=== PATIENT | male | born 1955 | race Caucasian/White ===

== ENCOUNTER → 2022-11-26 09:21 | Outpatient (BNVA) | payer MEDICARE, SELFPAY | PROVIDERS: PCP Specialist; Visit Provider Nurse Practitioner | DX: I25.10 Atherosclerotic heart disease of native coronary artery without angina pectoris (principal); I25.2 Old myocardial infarction; Z95.1 Presence of aortocoronary bypass graft; Z79.899 Other long term (current) drug therapy; K21.9 Gastro-esophageal reflux disease without esophagitis | CPT/HCPCS: 80053; 80061; 84443; 85025 ==

== ENCOUNTER → 2022-12-26 15:09 | Outpatient (BNVA) | payer MEDICARE, SELFPAY | PROVIDERS: PCP Nurse Practitioner; Referring Provider Nurse Practitioner; Visit Provider Internal Medicine Cardiovascular Disease | DX: R07.9 Chest pain, unspecified (principal); I25.10 Atherosclerotic heart disease of native coronary artery without angina pectoris; I10 Essential (primary) hypertension; E78.5 Hyperlipidemia, unspecified; I25.5 Ischemic cardiomyopathy; Z87.891 Personal history of nicotine dependence | CPT/HCPCS: 93005; 99204 ==

== ENCOUNTER 2022-12-30 14:43 | Outpatient (CLI) | payer MEDICARE, SELFPAY ==
--- NOTE | 2022-12-30 15:15 | USCV_ITS ---
Lakeisha Shrestha Age: 67 Gender: M : 1955 Exam Date: 12/30/2022 15:20 Ordering Phys: Varinder Buitrago MD ([email or web address]) Technologist: JEANNA Exam Location: [facility] Indication: CARDIOMYO BP: 140 / 80 HR: 59 Rhythm: Sinus Technical Quality: Adequate MEASUREMENTS (Male / Female) Normal Values 2D ECHO LVOT Diameter 2.0 cm LV Ejection Fraction MOD 2C 27.7 % LV Ejection Fraction 2C AL 26.8 % LA Diameter 3.7 cm LA Width 2.6 cm LA Height 5.0 cm RA Width 3.5 cm RA Height 4.2 cm Aorta at Sinotubular Diameter 2.2 cm IVC Diameter 1.3 cm M-MODE Aortic Annulus Diameter 3.4 cm LA Ao Ratio MM 1.1 MV E Point Septal Separation 1.1 cm DOPPLER AV Peak Velocity 121.0 cm/s LVOT Peak Velocity 76.0 cm/s AV Area Cont Eq vti 2.2 cm squared AV Area Cont Eq pk 2.0 cm squared MV Peak Velocity 87.0 cm/s MV Area PHT 3.1 cm squared Mitral E to A Ratio 0.8 MV E' Velocity 36.5 cm/s Mitral E to MV E' Ratio 7.5 Mitral E to LV E' Lateral Ratio 5.5 Mitral E to LV E' Septal Ratio 11.9 TR Peak Velocity 171.5 cm/s TR Peak Gradient 11.8 mmHg TR Mean Velocity 138.3 cm/s TR Mean Gradient 7.9 mmHg TR Velocity Time Integral 48.4 cm TV Peak E Velocity 53.0 cm/s Right Atrial Pressure 3.0 mmHg Pulmonary Artery Systolic Pressu 14.8 mmHg PV Peak Velocity 100.0 cm/s RV Acceleration Time 0.1 s RV Ejection Time 0.3 s RV AcT/ET 0.5 FINDINGS Left Ventricle Mildly dilated LV cavity. Diffuse hypokinesia of left ventricule with an ejection fraction of 32%.Grade I/IV diastolic dysfunction (abnormal relaxation filling pattern), normal to mildly elevated filling pressures. Right Ventricle The right ventricle is normal in size and function. Right Atrium The right atrium is normal in size. Left Atrium Mildly increased left atrial size. Mitral Valve Mild-moderate mitral valve regurgitation. Aortic Valve Thickened aortic valve. Trace aortic valve regurgitation. Tricuspid Valve Trace tricuspid valve regurgitation. Estimated pulmonary artery peak systolic pressure 15 mmHg Pulmonic Valve Mild pulmonary valve regurgitation. Pericardium Normal pericardium without effusion. Aorta Normal ascending aorta dimension. IVC Normal inferior vena cava. CONCLUSIONS Mildly dilated LV cavity. Diffuse hypokinesia of left ventricule with an ejection fraction of 32%. Grade I/IV diastolic dysfunction (abnormal relaxation filling pattern), normal to mildly elevated filling pressures. Mildly increased left atrial size. Mild-moderate mitral valve regurgitation. Thickened aortic valve. Trace aortic valve regurgitation. Trace tricuspid valve regurgitation. Estimated pulmonary artery peak systolic pressure 15 mmHg. There is no pericardial effusion. There are no intracardiac masses. No similar previous studies are available for comparison Dr Varinder Buitrago MD [facility] (Electronically Signed) Final Date: 03 January 2023 09:55 S
== END 2022-12-30 14:44 | disposition home or self-care (01) ==
LOC: RAD 14:43
PROVIDERS: PCP Nurse Practitioner; Visit Provider Internal Medicine Cardiovascular Disease
DX: I42.9 Cardiomyopathy, unspecified (principal); R06.09 Other forms of dyspnea; I08.0 Rheumatic disorders of both mitral and aortic valves
CPT/HCPCS: 93306

== ENCOUNTER → 2023-01-14 09:31 | Outpatient (BNVA) | payer MEDICARE, SELFPAY | PROVIDERS: PCP Nurse Practitioner; Visit Provider Nurse Practitioner Family | DX: I25.5 Ischemic cardiomyopathy (principal); I10 Essential (primary) hypertension; Z87.891 Personal history of nicotine dependence | CPT/HCPCS: 99214 ==

== ENCOUNTER → 2023-01-27 09:31 | Outpatient (BNVA) | payer MEDICARE, SELFPAY | PROVIDERS: PCP Nurse Practitioner; Referring Provider Nurse Practitioner Family; Visit Provider Nurse Practitioner Family | DX: I25.5 Ischemic cardiomyopathy (principal); I10 Essential (primary) hypertension; I25.10 Atherosclerotic heart disease of native coronary artery without angina pectoris | CPT/HCPCS: 80048; 83880 ==

== ENCOUNTER → 2023-02-25 09:04 | Outpatient (BNVA) | payer MEDICARE, SELFPAY | PROVIDERS: PCP Nurse Practitioner; Visit Provider Nurse Practitioner Family | DX: I25.5 Ischemic cardiomyopathy (principal); Z79.899 Other long term (current) drug therapy | CPT/HCPCS: 80048 ==

== ENCOUNTER → 2023-03-31 14:49 | Outpatient (BNVA) | payer MEDICARE, SELFPAY | PROVIDERS: PCP Nurse Practitioner; Visit Provider Internal Medicine Cardiovascular Disease | DX: I25.10 Atherosclerotic heart disease of native coronary artery without angina pectoris (principal); I10 Essential (primary) hypertension; E78.5 Hyperlipidemia, unspecified; I25.5 Ischemic cardiomyopathy; Z87.891 Personal history of nicotine dependence | CPT/HCPCS: 99214 ==

== ENCOUNTER 2023-04-22 10:17 | Outpatient (CLI) | payer MEDICARE, SELFPAY ==
--- NOTE | 2023-04-22 11:00 | USCV_ITS ---
Lakeisha Shrestha Age: 68 Gender: M : 1955 Exam Date: 04/22/2023 10:28 Ordering Phys: Varinder Buitrago MD ([email or web address]) Technologist: CT Exam Location: [facility] Indication: BP: 120 / 80 HR: Rhythm: Sinus Technical Quality: Adequate MEASUREMENTS (Male / Female) Normal Values 2D ECHO LVOT Diameter 2.2 cm LV Ejection Fraction MOD 2C 46.1 % LV Ejection Fraction 2C AL 49.5 % LA Diameter 3.4 cm RA Systolic Volume 4C AL 36.0 ml RA Systolic Volume 4C MOD 33.0 ml Aorta at Sinotubular Diameter 2.9 cm IVC Diameter 1.5 cm M-MODE LA Ao Ratio MM 1.2 AV Cusp Separation MM 2.2 cm FINDINGS Left Ventricle Diffuse hypokinesia of the left ventricle with ejection fraction of 46%. Mildly dilated left Left-ventricular cavity Right Ventricle The right ventricle is normal in size and function. Right Atrium The right atrium is normal in size. Left Atrium Mildly increased left atrial size. Mitral Valve No gross abnormalities noted Aortic Valve Thickened aortic valve. Tricuspid Valve No gross abnormalities noted Pulmonic Valve No gross abnormalities noted Pericardium Normal pericardium without effusion. Aorta Normal ascending aorta dimension. IVC Normal inferior vena cava. CONCLUSIONS Diffuse hypokinesia of the left ventricle with ejection fraction of 46%. Mildly increased left atrial size. Mildly dilated left Left-ventricular cavity. There is no pericardial effusion. There are no intracardiac masses. Compared to the study from 12/30/2022, there is significant improvement of the LV ejection fraction from 32% to 46% Dr Varinder Buitrago MD FAC (Electronically Signed) Final Date: 25 April 2023 19:46 S
== END 2023-04-22 10:18 | disposition home or self-care (01) ==
LOC: RAD 10:17
PROVIDERS: PCP Nurse Practitioner; Visit Provider Internal Medicine Cardiovascular Disease
DX: I42.9 Cardiomyopathy, unspecified (principal); I51.7 Cardiomegaly
CPT/HCPCS: 93308

== ENCOUNTER → 2023-05-20 09:47 | Outpatient (BNVA) | payer MEDICARE, SELFPAY | PROVIDERS: PCP Nurse Practitioner; Visit Provider Otolaryngology | DX: R04.0 Epistaxis (principal); I10 Essential (primary) hypertension | CPT/HCPCS: 30901; 30905; 99204; 99205 ==

== ENCOUNTER → 2023-05-27 09:28 | Outpatient (BNVA) | payer MEDICARE, SELFPAY | PROVIDERS: PCP Nurse Practitioner; Visit Provider Otolaryngology | DX: R04.0 Epistaxis (principal) | CPT/HCPCS: 99213 ==

== ENCOUNTER → 2023-09-11 10:30 | Outpatient (BNVA) | payer MEDICARE, SELFPAY | PROVIDERS: PCP Nurse Practitioner; Visit Provider Nurse Practitioner Family | DX: I25.10 Atherosclerotic heart disease of native coronary artery without angina pectoris (principal); I25.2 Old myocardial infarction; I10 Essential (primary) hypertension; E78.5 Hyperlipidemia, unspecified; Z87.891 Personal history of nicotine dependence | CPT/HCPCS: 36415; 80061; 99214 ==

== ENCOUNTER → 2024-02-23 10:13 | Outpatient (BNVA) | payer MEDICARE, SELFPAY | PROVIDERS: PCP Nurse Practitioner; Visit Provider Nurse Practitioner | DX: I25.2 Old myocardial infarction (principal); I10 Essential (primary) hypertension | CPT/HCPCS: 80053; 80061; 85025 ==

== ENCOUNTER 2024-04-22 10:52 | Inpatient (IN) | payer MEDICARE, SELFPAY ==
[2024-04-22] VITALS (14 sets, daily range): BP systolic 112–130; BP diastolic 67–84; PULSE 79–98; RESP 16–24; TEMP 36.3–36.8; O2SAT 93–98; BMI 27.2; BMI 26.4
--- NOTE | 2024-04-22 10:58 | ECG_ITS ---
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 Measurements Intervals [place] Rate: 89 P: 26 ID: 150 QRS: 78 QRSD: 124 T: 32 QT: 340 QTc: 415 Interpretive Statements SINUS RHYTHM MODERATE INTRAVENTRICULAR CONDUCTION DELAY [110+ ms QRS DURATION] NONSPECIFIC ST & T-WAVE ABNORMALITY Compared to ECG 12/26/2022 15:15:21 Intraventricular conduction delay now present T-wave abnormality now present Left ventricular hypertrophy no longer present ST (T wave) deviation no longer present Electronically Signed On 04-23-2024 19:07:00 CDT by Ha Cortez M.D. [id number]
--- NOTE | 2024-04-22 10:58 | XR_ITS ---
WS: [id number] Portable AP upright chest, 04/22/2024 Clinical Data: Chest pain Comparison: Two-view chest, 07/01/2026 Findings: No nodules, masses or effusions are seen. The heart is normal. The pulmonary vascularity is not increased. No pneumonia or pneumothorax is seen. The diaphragms are flattened. There are midline sternotomy sutures. There are mediastinal clips overlying the heart. XR/XR chest 1V portable [id number] Impression: Hyperinflation and atherosclerosis.
[2024-04-22 11:37] LABS: Basophils # 0.1 10^3/uL (0.0-0.1); Eosinophils # 0.3 10^3/uL (0.0-0.8); Eosinophils % 3.6 %; Hematocrit 40.6 % (37-53); Lymphocytes # 1.6 10^3/uL (0.8-4.8); Lymphocytes % 17.5 %; Mean Corpuscular HGB Conc 31.8 g/dL (30-55); Mean Corpuscular Hemoglobin 29.6 pg (27-33); Mean Corpuscular Volume 93.1 fl (82-101); Mean Platelet Volume 10.6 fL (7.4-10.4); Monocytes # 1.2 10^3/uL (0.2-0.9); Monocytes % 13.7 %; Neutrophils # 5.72 10^3/uL (1.8-7.7); Neutrophils % 63.9 %; Nucleated Red Blood Cells % 0 %; Platelet Count 247 10^3/cmm (157-399); Red Blood Count 4.36 10^6/uL (3.85-5.65); Red Cell Distribution Width 14.4 % (12.1-15.1); White Blood Count 8.96 10^3/uL (3.29-11.43)
--- NOTE | 2024-04-22 11:37 | W.ED.EXTPRO ---
HPI - Extremity Problem General: Chief complaint: Extremity Problem,Nontraumatic Stated complaint: cp, left shoulder pain Time Seen by Provider: 04/22/24 10:59 History of Present Illness: Patient presents to the ER by EMS from one of the outlying clinics. Patient stated he started having chest pain started last week and has gotten worse over time. Patient also states he has a tingling and pain in his left shoulder that radiates down his arm. He denies chest pain at this time. He did state that the pain in his arm feels like the last time he had a heart attack which was approximately 2022 when he ended up with a four-vessel bypass, this was in [place]. Patient does have a history of CAD with CABG, CHF, patient is on aspirin 81 mg, Lipitor 40, Plavix 75, Toprol 25, Entresto 1 tab twice daily Patient also states he fell on his left shoulder approximately 4 5 years ago and hurt it and he may have more arthritis in it even know he did not have any recent injury to it. Related Data Home Medications ?Medication ?Instructions ?Recorded ?Confirmed aspirin 81 mg tablet,delayed 81 mg PO DAILY 11/26/22 04/22/24 release pediatric multivitamin no.17 1 tab PO DAILY 11/26/22 04/22/24 (Children's Chew Multivitamin tablet) clopidogrel 75 mg tablet 75 mg PO DAILY 04/22/24 04/22/24 metoprolol succinate 25 mg 25 mg PO DAILY 04/22/24 04/22/24 tablet,extended release 24 hr Previous Rx's ?Medication ?Instructions ?Recorded pantoprazole 40 mg tablet,delayed 40 mg PO DAILY #90 tabs 08/18/23 release (Protonix) atorvastatin 40 mg tablet (Lipitor) 40 mg PO DAILY #90 tabs 09/11/23 fexofenadine 60 mg tablet (Allergy 60 mg PO BID #60 tabs 10/21/23 Relief (fexofenadine)) sacubitril 97 mg-valsartan 103 mg 1 tab PO BID #180 tabs 03/09/24 tablet Allergies Allergy/AdvReac Type Severity Reaction Status Date / Time No Known Allergies Allergy Verified 04/22/24 09:31 Review of Systems General: Reports: 10 or more systems reviewed and unremarkable except in HPI and below PFSH ED PFSH: Medical History History of heart attack 2022 Surgical History History of cholecystectomy History of hernia repair History of dental surgery History of quadruple bypass 05/20/2022 Family History Grandfather , maternal Cancer paternal- liver Chronic kidney disease (CKD) Diabetes Brother Heart disease Mother Heart disease Denies family history of Clotting disorder Bleeding disorder Thyroid disease Stroke Social History Smoking and tobacco/nicotine status: former use of tobacco/nicotine Quit status (tobacco/nicotine): has quit using Year quit tobacco: 2017 Second hand smoke exposure: No Physical Exam Const: COMMON NORMALS: no acute distress, average body habitus, patient oriented x3, no limitations, alert and well nourished HENMT: COMMON NORMALS: normocephalic, atraumatic, hearing grossly normal bilaterally, external ears normal, Normal external nose present, moist oral mucous membranes and oropharynx normal HEAD & SCALP: normocephalic and atraumatic NOSE: Normal external nose present EXTERNAL EAR: Yes external ears normal Neck/C-Spine: COMMON NORMALS: no JVD Chest: COMMONS NORMALS: normal inspection of the chest and normal palpation of entire chest wall Resp: COMMON NORMALS: normal respiratory effort, No retractions, No use of accessory muscles and clear to auscultation bilaterally AUSCULTATION: clear to auscultation bilaterally Cardio: COMMON NORMALS: no JVD, regular rate, regular rhythm, S1 normal heart sound present, S2 normal heart sound present, No gallops present (Cardio), No clicks present (Cardio), No murmurs present (Cardio) and No rub (Cardio) RATE: regular rate RHYTHM: regular rhythm HEART SOUNDS: S1 normal heart sound present and S2 normal heart sound present GI: COMMON NORMALS: Normal to inspection, nondistended, normoactive bowel sounds present, Soft to palpation, non-tender, No hepatosplenomegaly present and no masses PALPATION: Yes Soft to palpation and Yes No hepatosplenomegaly present Neuro: COMMON NORMALS: patient oriented x3 SENSORIUM/ORIENTATION: Yes alert Course Vital Signs: Vital signs: Vital Signs Temperature 97.4 F L 04/22/24 10:53 Pulse Rate 84 04/22/24 11:36 Respiratory Rate 18 04/22/24 11:36 Blood Pressure 118/77 04/22/24 11:36 Pulse Oximetry 96 04/22/24 11:36 Oxygen Delivery Me thod Room Air 04/22/24 10:53 MDM - Extremity (Nontraumatic) Medical Decision Making EKG was obtained which showed some ST depression, when lab work came back troponin was 362, baseline we do not have any previous troponin, BUN/creatinine was 18 and 1.2, we immediately got a second EKG which was unchanged, these EKGs were faxed to Dr. Bailey who said no STEMI. The hospitalist was consulted Dr. Walker who agreed to place patient observation for further evaluation treatment. Patient was given 324 mg aspirin p.o. chewable, Plavix 600 mg p.o., and Lovenox 90 mg subcu. Medical Records I reviewed the patient's medical records. Lab Data I reviewed the patient's lab results. 04/22/24 11:28 04/22/24 11:28 Radiology Impressions Chest X-Ray 04/22/24 10:58 Impression: Hyperinflation and atherosclerosis. Laboratory Results WBC 8.96 10^3/uL (3.29-11.43) 04/22/24 11:28 RBC 4.36 10^6/uL (3.85-5.65) 04/22/24 11:28 Hgb 12.90 g/dL (11.27-16.99) 04/22/24 11:28 Hct 40.6 % (37-53) 04/22/24 11:28 MCV 93.1 fl (82-101) 04/22/24 11:28 MCH 29.6 pg (27-33) 04/22/24 11:28 MCHC 31.8 g/dL (30-55) 04/22/24 11:28 RDW 14.4 % (12.1-15.1) 04/22/24 11:28 Plt Count 247 10^3/cmm (157-399) 04/22/24 11:28 MPV 10.6 fL (7.4-10.4) H 04/22/24 11:28 Neut % (Auto) 63.9 % 04/22/24 11:28 Lymph % (Auto) 17.5 % 04/22/24 11:28 Woodruff % (Auto) 13.7 % 04/22/24 11:28 Eos % (Auto) 3.6 % 04/22/24 11:28 Baso % (Auto) 1.0 % 04/22/24 11:28 Neut # (Auto) 5.72 10^3/uL (1.8-7.7) 04/22/24 11:28 Lymph # (Auto) 1.6 10^3/uL (0.8-4.8) 04/22/24 11:28 Woodruff # (Auto) 1.2 10^3/uL (0.2-0.9) H 04/22/24 11:28 Eos # (Auto) 0.3 10^3/uL (0.0-0.8) 04/22/24 11: Baso # (Auto) 0.1 10^3/uL (0.0-0.1) 04/22/24 11:28 Nucleated RBC % (auto) 0 % 04/22/24 11:28 Nucleated RBCs # 0.0 /100WBC 04/22/24 11:28 Sodium 137 mmol/L (136-145) 04/22/24 11:28 Potassium 4.4 mmol/L (3.5-5.1) 04/22/24 11:28 Chloride 104 mmol/L (98-107) 04/22/24 11:28 Carbon Dioxide 23 mmol/L (22-29) 04/22/24 11:28 Anion Gap 14.4 (5-19) 04/22/24 11:28 BUN 18 mg/dL (8-23) 04/22/24 11:28 Creatinine 1.2 mg/dL (0.7-1.2) 04/22/24 11:28 GFR Calculation 60.4 mL/min (90-130) L 04/22/24 11:28 Glucose 118 mg/dL (65-115) H 04/22/24 11:28 Calculated Osmolality 287 mOsm/kg (285-295) 04/22/24 11:28 Calcium 9.3 mg/dL (8.5-10.5) 04/22/24 11:28 Total Bilirubin 0.5 mg/dL (0.15-1.2) 04/22/24 11:28 AST 40 U/L (0-40) 04/22/24 11:28 ALT 26 U/L (0-41) 04/22/24 11:28 Alkaline Phosphatase 114 U/L (40-130) 04/22/24 11:28 Troponin T Baseline 362 ng/L (0-15) H* 04/22/24 11:28 Total Protein 6.8 g/dL (6.6-8.7) 04/22/24 11:28 Albumin 3.8 g/dL (3.5-5.2) 04/22/24 11:28 Globulin 3.0 g/dL (1.3-4.6) 04/22/24 11:28 All radiology interpretation(s) finalized by discharge Discharge Plan Discharge Patient Disposition: Placed in Observation Clinical Impression: Acute non-ST elevation myocardial infarction (NSTEMI), History of coronary artery bypass graft Coding Level of Care Code ED 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
[2024-04-22 11:57] LABS: Alanine Aminotransferase 26 U/L (0-41); Albumin Level 3.8 g/dL (3.5-5.2); Alkaline Phosphatase 114 U/L (40-130); Anion Gap 14.4 (5-19); Aspartate Amino Transferase 40 U/L (0-40); Blood Urea Nitrogen 18 mg/dL (8-23); Calcium 9.3 mg/dL (8.5-10.5); Carbon Dioxide 23 mmol/L (22-29); Chloride 104 mmol/L (98-107); Glomerular Filtration Rate 60.4 mL/min (90-130); Glucose 118 mg/dL (65-115); Osmolality Calculated 287 mOsm/kg (285-295); Potassium 4.4 mmol/L (3.5-5.1); Sodium 137 mmol/L (136-145); Total Bilirubin 0.5 mg/dL (0.15-1.2); Total Protein 6.8 g/dL (6.6-8.7)
[2024-04-22 12:08] LABS: Troponin(5th) Baseline 362 ng/L (0-15)
--- NOTE | 2024-04-22 12:12 | ECG_ITS ---
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 Measurements Intervals [place] Rate: 81 P: 59 WA: 144 QRS: 38 QRSD: 124 T: -17 QT: 364 QTc: 425 Interpretive Statements SINUS RHYTHM MODERATE INTRAVENTRICULAR CONDUCTION DELAY [110+ ms QRS DURATION] MODERATE ST DEPRESSION [0.05+ mV ST DEPRESSION] Compared to ECG 04/22/2024 10:54:51 ST (T wave) deviation now present T-wave abnormality no longer present Electronically Signed On 04-23-2024 19:23:51 CDT by Ha Cortez M.D. [id number]
[2024-04-22] MEDS: clopidogrel 300 mg Tablet 600 MG PO (12:35)
[2024-04-22] MEDS: aspirin 81 mg Chew Tablet 324 MG PO (12:35)
[2024-04-22] MEDS: enoxaparin 100 mg/mL Syringe 90 MG SUBCUT (12:35)
--- NOTE | 2024-04-22 13:39 | P.HP_ITS ---
Providers/Chief Complaint 2 Primary Care Provider: Edie Henley APN Chief Complaint: cp, left shoulder pain History of Present Illness 69-year-old male with a past medical history of GERD, hypertension, dyslipidemia, coronary artery disease status post quadruple coronary artery bypass graft (CABG) in 05/2022, congestive heart failure with ejection fraction of 46% who presents with intermittent left arm numbness and tingling for the past 2-3 days. The numbness and tingling sensation is described as similar to the feeling of sleeping on one's arm, lasting 3-4 minutes per episode and occurring 7-8 times today. Associated symptoms include heartburn described as a burning sensation and nausea without vomiting. Denies chest pain or shortness of breath. Reports compliance with medications. Additional history includes left shoulder pain following a fall 3-4 years ago and another fall 4-5 years ago, with persistent shoulder pain since the first cardiac surgery. Also notes chronic neck pain attributed to arthritis. Denies any prior cervical spine issues. Initial evaluation in the ER revealed: - Laboratory Findings: Elevated troponin at 362. Remainder of labs within normal limits. - Imaging Studies: Chest X-ray showing hyperinflation. The patient was treated with aspirin, loaded with Plavix, and started on lovenox. He remains hemodynamically stable and asymptomatic. Review of Systems 2 General: Reports: 10 or more systems reviewed and unremarkable except in HPI and below Medications/Allergies Home Medications ?Medication ?Instructions ?Recorded ?Confirmed ?Last Taken ?Type aspirin 81 mg tablet,delayed 81 mg PO DAILY 11/26/22 0 04/22/24 04/22/24 History release pediatric multivitamin no.17 1 tab PO DAILY 11/26/22 0 04/22/24 04/22/24 History (Children's Chew Multivitamin tablet) pantoprazole 40 mg tablet,delayed 40 mg PO DAILY #90 t abs 08/18/23 04/22/24 04/22/24 Rx release (Protonix) atorvastatin 40 mg tablet (Lipitor) 40 mg PO DAILY #90 tabs 09/11/23 04/22/24 04/22/24 Rx fexofenadine 60 mg tablet (Allergy 60 mg PO BID #60 ta bs 10/21/23 04/22/24 04/22/24 Rx Relief (fexofenadine)) sacubitril 97 mg-valsartan 103 mg 1 tab PO BID #180 ta bs 03/09/24 04/22/24 04/22/24 Rx tablet clopidogrel 75 mg tablet 75 mg PO DAILY 04/22/2404/1004/22/24 History metoprolol succinate 25 mg 25 mg PO DAILY 04/22/2404/22/24 History tablet,extended release 24 hr Allergies Allergy/AdvReac Type Severity Reaction Status Date / Time No Known Allergies Allergy Verified 04/22/24 09:31 PFSH Acute 2 PFSH: Medical History History of heart attack may- 2022 Surgical History History of cholecystectomy History of hernia repair History of dental surgery History of quadruple bypass 05/20/2022 Family History Grandfather , maternal Cancer paternal- liver Chronic kidney disease (CKD) Diabetes Brother Heart disease Mother Heart disease Denies family history of Clotting disorder Bleeding disorder Thyroid disease Stroke Social History Smoking and tobacco/nicotine status: former use of tobacco/nicotine Quit status (tobacco/nicotine): has quit using Year quit tobacco: 2016 Second hand smoke exposure: No Vitals/I&O/Wt Last Vital Signs Temp 97.4 F L 04/22/24 10:53 Pulse 93 04/22/24 13:37 Resp 16 04/22/24 13:37 BP 130/79 04/22/24 13:37 Pulse Ox 98 04/22/24 13:37 O2 Del Method Room Air 04/22/24 10:53 Weight last 48 hrs Weight 86.183 kg Physical Exam 2 Narrative: - Cardiovascular: RRR - Respiratory: Lungs clear to auscultati on bilaterally. No respiratory distress. - Gastrointestinal: Noted heartburn, maynor cribed as burning sensation. No abdominal pain or tenderness. Nondistended - Musculoskeletal: Intermittent left arm numbness and tingling. Chronic left shoulder pain. - Neurological: No focal neurological de ficits. Data 04/22/24 11:28 04/22/24 11:28 A&P Assessment and plan (1) Acute non-ST elevation myocardial infarction (NSTEMI): (2) Benign essential HTN: (3) History of quadruple bypass: (4) History of heart attack: (5) Dyslipidemia: (6) History of coronary artery bypass graft: Plan NSTEMI - 69-year-old male with extensive cardiac history presenting with intermittent left arm numbness and tingling concerning for unstable angina in the setting of elevated troponin. No evidence of acute ST-elevation myocardial infarction on EKG. Differential Diagnosis: 1. Unstable angina secondary to progression of absentee-[place]nee coronary artery disease or bypass graft disease. 2. Less likely alternative etiologies include cervical radiculopathy or peripheral neuropathy. Plan: 1. Admit to cardiac step-down unit for close monitoring and serial troponins. 2. Continue aspirin, Plavix, statin and Lovenox 3. Cardiology consultation for consideration of left heart catheterization 5. Cardiac diet now however NPO at Midnight for possible cath in am Chronic HF with mildly reduced EF - History of congestive heart failure with last known ejection fraction of 46% in 2023. No overt signs or symptoms of acute decompensation on presentation. Plan: 1. Continue home Entresto 97/103 mg twice daily following cardiac cath and metoprolol succinate 25 mg daily 2. Monitor fluid balance and weight daily. 3. Defer echo to cardiology Gastroesophageal Reflux Disease - Reports symptoms of heartburn without chest pain, currently managed with proton pump inhibitor therapy. Plan: 1. Continue proton pump inhibitor. Chronic Left Shoulder Pain - History of left shoulder pain following falls 3-4 and 4-5 years ago, with persistent pain since first cardiac surgery. No evidence of acute fracture or dislocation. Plan: 1. Obtain X-ray of left shoulder to evaluate for any acute osseous abnormality. 2. Consider OT evaluation for range of motion exercises and strengthening. PDMP PDMP Reviewed: Not Reviewed Attestations 2 Medical Necessity Statement*: Anticiapate less than 2 midnight stay Coding Level of Care Code Acute Code for [facility] Diagnoses Acute non-ST elevation myocardial infarction (NSTEMI) I21.4 Benign essential HTN I10 History of quadruple bypass Z95.1 History of heart attack I25.2 Dyslipidemia E78.5 History of coronary artery bypass graft Z95.1
--- NOTE | 2024-04-22 14:10 | XR_ITS ---
WS: [email or web address] Left shoulder, 3 views, 04/22/2024 Clinical Data: shoulder pain Comparison: None. Findings: No fractures or dislocations are seen. The AC joint is normal. The adjacent left clavicle, left scapula and ribs are normal. The soft tissues are unremarkable. Midline sternotomy sutures are present. There is a monitor lead on the chest wall. XR/XR shoulder LT min 2V* [id number] Impression: Negative left shoulder.
[2024-04-22 14:47] LABS: Troponin 5 2HR 373.4 ng/L (0-15); Troponin 5 2HR Delta 11.4 ABS# (0-10)
--- NOTE | 2024-04-22 16:58 | ECG_ITS ---
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 Measurements Intervals [place] Rate: 81 P: 50 [place]: 150 QRS: -16 QRSD: 128 T: -4 QT: 373 QTc: 434 Interpretive Statements SINUS RHYTHM MODERATE INTRAVENTRICULAR CONDUCTION DELAY [110+ ms QRS DURATION] NONSPECIFIC ST & T-WAVE ABNORMALITY Compared to ECG 04/22/2024 12:12:08 T-wave abnormality now present ST (T wave) deviation no longer present Electronically Signed On 04-23-2024 19:21:50 CDT by Ha Cortez M.D. [id number]
--- NOTE | 2024-04-22 17:57 | P.CONIM_ITS ---
<Statement entered by Frances Art MD - 04/24/24 18:01> Patient was evaluated and cared for in conjunction with an advanced practice practitioner. I personally examined the patient and reviewed the chart and all pertinent data including imaging, telemetry, and laboratory results. I discussed the patient in detail with the advanced practice practitioner. Please see their note for complete H&P testing result and agreed upon plan of care for the patient. 69-year-old male past medical history significant for coronary artery disease history of CABG with QUINTERO to LAD SVG to PDA and SVG to OM/diagonal with skip graft presented with chest pain heartburn radiating to arms. Patient had bypass performed 2 years ago at an outside hospital. He was ruled in for non-ST elevation IA. GENERAL: Patient is alert, awake and oriented x3. HEART: Regular S1 and S2. No murmur, rub or gallop. LUNGS: Clear to auscultate bilaterally. CENTRAL NERVOUS SYSTEM: Grossly nonfocal. EXTREMITIES: Lower extremities with out edema bilaterally. Assessment and plan Non-ST elevation IA Hypertension Hyperlipidemia Continue aspirin statin beta-rupesh add heparin drip Proceed with left heart cath tomorrow morning or earlier if patient started having more symptoms Echocardiogram to assess LV function Providers/Reason For Consult 2 Consulting Physician/Specialty*: Frances Art MD Reason for Consult*: Chest pain Requesting Physician: Dr. Walker Attending Physician: Joya Walker Primary Care Provider: Edie Henley APN History of Present Illness History of Present Illness This is a very pleasant 69-year-old gentleman who has a history of coronary artery disease, CABG, CHF, currently taking aspirin Lipitor Plavix Toprol and Entresto 1 tablet twice daily. He came to the ER via EMS from one of the outlying clinics. He started having chest pain and had gotten worsen over time. He describes most of his symptoms as acid reflux type symptoms in the epigastric region but he did have burning and pain down his left arm as well. Currently he is chest pain-free. His CABG was done at [place] a couple years ago per patient. On admission troponins were significantly elevated with baseline of 3 62?373.4 awaiting 6-hour results. EKG showed no acute ST elevation or T wave abnormalities. Echocardiogram done in April 2023 showed ejection fraction 46% which had improved from 32%. Current vital signs are stable. Review of Systems 2 Narrative: Consitutional: denies fever, chills, body aches, or changes in appetite, denies abnormal weight loss Eyes: Denies changes in vision Card: Denies chest pain, palpitations, irregular heart rhythm, edema, syncope, shortness of breath, orthopnea, leg pain with exertion Resp: Denies shortness of breath, denies hemoptysis, denies cough GI: denies abdominal pain, denies nausea or voimting, denies blood in stool : denies blood in urine, denies dysuria Musc: Denies extremity pain, denies limited range of motion or recent injury Skin: Denies rash, lesions, or wounds, denies changes to skin color Neuro: Denies nubmness in extremities, h/a, s/s of stroke Suleman: Denies easy bruiding/bleeding Medications/Allergies Home Medications ?Medication ?Instructions ?Recorded ?Confirmed ?Last Taken ?Type aspirin 81 mg tablet,delayed 81 mg PO DAILY 11/26/22 0 04/22/24 04/22/24 History release pediatric multivitamin no.17 1 tab PO DAILY 11/26/22 0 04/22/24 04/22/24 History (Children's Chew Multivitamin tablet) pantoprazole 40 mg tablet,delayed 40 mg PO DAILY #90 t abs 08/18/23 04/22/24 04/22/24 Rx release (Protonix) atorvastatin 40 mg tablet (Lipitor) 40 mg PO DAILY #90 tabs 09/11/23 04/22/24 04/22/24 Rx fexofenadine 60 mg tablet (Allergy 60 mg PO BID #60 ta bs 10/21/23 04/22/24 04/22/24 Rx Relief (fexofenadine)) sacubitril 97 mg-valsartan 103 mg 1 tab PO BID #180 ta bs 03/09/24 04/22/24 04/22/24 Rx tablet clopidogrel 75 mg tablet 75 mg PO DAILY 04/22/2404/1004/22/24 History metoprolol succinate 25 mg 25 mg PO DAILY 04/22/2404/22/24 History tablet,extended release 24 hr Allergies Allergy/AdvReac Type Severity Reaction Status Date / Time No Known Allergies Allergy Verified 04/22/24 09:31 PFSH Acute 2 PFSH: Medical History History of heart attack 2022 Surgical History History of cholecystectomy History of hernia repair History of dental surgery History of quadruple bypass 05/20/2022 Family History Grandfather , maternal Cancer paternal- liver Chronic kidney disease (CKD) Diabetes Brother Heart disease Mother Heart disease Denies family history of Clotting disorder Bleeding disorder Thyroid disease Stroke Social History Smoking and tobacco/nicotine status: former use of tobacco/nicotine Quit status (tobacco/nicotine): has quit using Year quit tobacco: 2017 Second hand smoke exposure: No Vitals/I&O/Wt Last Vital Signs Temp 98.2 F 04/22/24 16:00 Pulse 85 04/22/24 16:00 Resp 24 H 04/22/24 16:00 BP 128/67 04/22/24 16:00 Pulse Ox 98 04/22/24 16:00 O2 Del Method Room Air 04/22/24 16:00 04/22/24 04/22/24 04/22/24 06:59 14:59 22:59 Output Total 300 / 300 Balance -300 / -300 Weight last 48 hrs Weight 184 lb 6 oz Weight 190 lb Physical Exam 2 Narrative: General: No apparent distress, healthy appearing, well nourished Muskuloskeletal: Full ROM Lymphatic: no lymphedema noted Respiratory: Normal respiratory effort, clear to auscultation bilaterally throughout all lung nino, no use of accessory muscles Cardio: No JVD, regular rate, regular rhythm, S1 S2 normal, no murmurs, peripheral pulses 2+ radial palpated bilaterally GI: Normal to inspection, nondistended Extremities: Full ROM, normal, normal capillary refill, no cyanosis or edema Neuro: Alert and oriented x4, no focal motor deficits Psych: Affect normal, denies suicidal ideation, mental status grossly normal Skin: No rashes or lesions noted, no wounds Data 04/22/24 11:28 04/22/24 11:28 A&P Assessment and plan (1) History of heart attack: (2) History of quadruple bypass: (3) Atherosclerosis of coronary artery of [place] heart without angina pectoris: Qualifiers: Coronary Disease-Associated Artery/Lesion type: [place] artery Qualified Code(s): I25.10 - Atherosclerotic heart disease of [place] coronary artery without angina pectoris (4) Benign essential HTN: (5) Ischemic cardiomyopathy: (6) Acute non-ST elevation myocardial infarction (NSTEMI): Plan Patient has had several episodes of chest pain and indigestion with pain down his left arm with significant elevation in troponin with history of CABG QUINTERO to LAD saphenous vein graft sequential to D2 and OM with saphenous vein graft to PDA a couple years ago. High suspicion for progression of coronary artery disease and grafts. Plan is to perform angiogram possible PCI tomorrow afternoon. Will keep patient n.p.o. after midnight. This was discussed with the patient by Dr. Art and patient fully agrees to proceed. Agree with lovenox. Continue plavix and aspirin, beta rupesh, and statin. Thank you, Dr. Walker, for allowing us to care for this very pleasant 69 year old gentleman. PDMP PDMP Reviewed: Not Reviewed Consult Attestations 2 Medical Necessity Statement: Deferred to primary. Coding Level of Care Code Acute Code for Chg Fwd Diagnoses History of heart attack I25.2 History of quadruple bypass Z95.1 Atherosclerosis of [place] coronary artery of [place] heart without angina pectoris I25.10 Coronary Disease-Associated Artery/Lesion type: [place] artery Benign essential HTN I10 Ischemic cardiomyopathy I25.5 Acute non-ST elevation myocardial infarction (NSTEMI) I21.4
--- NOTE | 2024-04-22 18:00 | USCV_ITS ---
Shrestha Jeanmonica Age: 69 Gender: M : 1955 Exam Date: 04/22/2024 18:28 Ordering Phys: Yumiko Rodríguez NP Technologist: Elliott Barton [place] [facility] [place]: NSTEMI hx of systolic CHF, hx HTN, DL, CAD s/p CABG 05/2022 BP: 128 / 67 HR: 71 Rhythm: Sinus Technical Quality: Adequate MEASUREMENTS (Male / Female) Normal Values 2D ECHO LV Diastolic Diameter PLAX 5.0 cm 4.2 - 5.9 / 3.9 - 5.3 cm IVS Diastolic Thickness 1.2 cm 0.6 - 1.0 / 0.6 - 0.9 cm IVS Systolic Thickness 1.8 cm LVPW Diastolic Thickness 1.1 cm 0.6 - 1.0 / 0.6 - 0.9 cm LVPW Systolic Thickness 1.1 cm LVOT Diameter 1.8 cm LV Ejection Fraction 2D Teich 45.9 % LV Ejection Fraction MOD 4C 18.0 % LV Ejection Fraction MOD 2C 24.3 % LV Ejection Fraction 2C AL 24.0 % LA Diameter 3.4 cm Aorta at Sinotubular Diameter 2.8 cm IVC Diameter 1.1 cm M-MODE LA Ao Ratio MM 0.8 AV Cusp Separation MM 2.2 cm DOPPLER AV Peak Velocity 122.0 cm/s LVOT Peak Velocity 74.0 cm/s AV Area Cont Eq vti 1.9 cm squared AV Area Cont Eq pk 1.5 cm squared MV Peak Velocity 100.0 cm/s MV Area PHT 2.5 cm squared Mitral E to A Ratio 0.6 TV Peak E Velocity 61.0 cm/s PV Peak Velocity 102.0 cm/s FINDINGS Left Ventricle Left ventricle is normal in size. LV systolic function is severely reduced with EF of 20-25%. Severe global hypokinesis. Grade 1 diastolic dysfunction Right Ventricle Normal in size and function Right Atrium Normal in size Left Atrium Normal in size Mitral Valve Structurally normal mitral valve. Mild to moderate mitral regurgitation. Aortic Valve Aortic valve is thickened. No significant stenosis or regurgitation. Tricuspid Valve Insufficient TR jet to calculate RVSP Pulmonic Valve Trace pulmonic regurgitation Pericardium Normal Aorta Normal in size IVC Appears to be normal CONCLUSIONS LV systolic function is severely reduced with EF of 20-25% Grade 1 diastolic dysfunction Mild to moderate mitral regurgitation Trace pulmonic regurgitation Compared to prior echocardiogram from 2023, LV systolic function has decreased significantly from 46% then to 20-25% now. Ha Cortez MD (Electronically Signed) Final Date: 23 April 2024 09:07 S
[2024-04-22 19:25] LABS: Troponin 5 6HR 360.8 ng/L (0-15); Troponin 5 6HR Delta -1.2 ng/L (0-12)
[2024-04-22] MEDS: atorvastatin 40 mg Tablet PO (20:56)
[2024-04-22] MEDS: enoxaparin 80 mg/0.8 mL Syringe SUBCUT (23:22)
[2024-04-23] VITALS (15 sets, daily range): BP systolic 113–169; BP diastolic 70–108; PULSE 80–117; RESP 14–29; TEMP 36.6–37.1; O2SAT 94–96
[2024-04-23 04:00] LABS: Basophils # 0.1 10^3/uL (0.0-0.1); Eosinophils # 0.4 10^3/uL (0.0-0.8); Lymphocytes # 1.8 10^3/uL (0.8-4.8); Lymphocytes % 19.1 %; Mean Corpuscular HGB Conc 31.5 g/dL (30-55); Mean Corpuscular Hemoglobin 29.4 pg (27-33); Mean Corpuscular Volume 93.1 fl (82-101); Mean Platelet Volume 10.8 fL (7.4-10.4); Monocytes # 1.1 10^3/uL (0.2-0.9); Monocytes % 11.9 %; Neutrophils # 5.85 10^3/uL (1.8-7.7); Neutrophils % 63.7 %; Nucleated Red Blood Cells % 0 %; Platelet Count 266 10^3/cmm (157-399); Red Blood Count 4.19 10^6/uL (3.85-5.65); Red Cell Distribution Width 14.5 % (12.1-15.1); White Blood Count 9.18 10^3/uL (3.29-11.43)
[2024-04-23 04:13] LABS: INR 1.02 (0.8-1.2)
[2024-04-23 04:20] LABS: Chol HDL Ratio 2.48 mg/dL (1.0-5.00); Cholesterol 99 mg/dL (0-200); HDL Cholesterol 40 mg/dL (60-100); LDL Cholesterol Calculated 45 mg/dL (50-129); LDL HDL Ratio 1.13 RATIO (0.00-3.22); Triglycerides 72 mg/dL (0-150)
[2024-04-23 04:29] LABS: Alanine Aminotransferase 22 U/L (0-41); Albumin Level 3.5 g/dL (3.5-5.2); Alkaline Phosphatase 104 U/L (40-130); Anion Gap 15.3 (5-19); Aspartate Amino Transferase 32 U/L (0-40); Blood Urea Nitrogen 18 mg/dL (8-23); Calcium 9.6 mg/dL (8.5-10.5); Carbon Dioxide 23 mmol/L (22-29); Chloride 107 mmol/L (98-107); Globulin 2.8 g/dL (1.3-4.6); Glomerular Filtration Rate 66.8 mL/min (90-130); Glucose 116 mg/dL (65-115); Osmolality Calculated 295 mOsm/kg (285-295); Potassium 4.3 mmol/L (3.5-5.1); Sodium 141 mmol/L (136-145); Total Bilirubin 0.6 mg/dL (0.15-1.2); Total Protein 6.3 g/dL (6.6-8.7)
--- NOTE | 2024-04-23 05:36 | XACV_ITS ---
Exam Room: [facility] Ht: 178 cm Wt: 82 kg BSA: 2.02 m2 Gender: Male : 1955 Any Known Allergies: No known allergies Exam Priority: Routine Procedure(s): Procedure Description: Diagnostic procedure Procedure Description: Left Heart Catheterization Procedure Description: Venous Graft Catheterization Procedure Description: Coronary Angiography Diagnostic Cath Status: Urgent Diagnostic Findings * Left Main to Proximal Left Anterior Descending: severe 90% stenosis, SHEREEN: 3 flow. * Mid Left Anterior Descending: total occlusion, SHEREEN: 3 flow. * Left Internal Mammary Artery to Mid Left Anterior Descending graft: patent. * Proximal Right Coronary Artery: severe 90% stenosis, SHEREEN: 3 flow. * Mid Right Coronary Artery: significant 80% stenosis, SHEREEN: 3 flow. * Distal Right Coronary Artery: severe 90% stenosis, SHEREEN: 3 flow. * Proximal Circumflex: subtotal occlusion, SHEREEN: 3 flow. * Ascending Aorta to Posterior Descending Right graft: total occlusion, SHEREEN: 0 flow. * Ascending Aorta to First Obtuse Marginal Branch Segment graft: total occlusion, SHEREEN: 0 flow. * Sequential SVG graft from First Obtuse Marginal Branch Segment to 1st Diagonal: severe 90% stenosis, SHEREEN: 0 flow. * Four grafts visualized. * Coronary angiography shows right dominance. Conclusions 1. There is total occlusion coronary artery disease with four vessel disease. 2. Four coronary grafts visualized: one graft patent, one graft diseased, and two grafts occluded. 3. Patient has prior CABG. 4. Patient was admitted with non-ST elevation CT with lateral lead ST depressions. He was chest pain-free after starting on heparin aspirin beta-rupesh and nitroglycerin. He was taken to the [facility] next day. He has history of CABG with QUINTERO to LAD, SVG to RCA and SVG skip graft from OM 2 diagonal branch. By echocardiogram left ventricular ejection fraction appeared to be 25% it is significantly decreased to 45% from 2 years back. Patient had CABG couple of years ago.Left main: Distal high-grade 90% stenosis LAD 100% occluded in the midsegment, diagonal branch before mid segment has luminal irregularity with mild to moderate disease LCx 99% subtotally occluded at the ostium it appeared to be the culprit vessel RCA: Is very torturous calcified vessel with proximal 90%, mid 80% and distal 90% stenosis. 5. Patient was given choice over time PCI which will be high risk, patient was informed that we do not have a CT surgery backup. Patient would like to go to CT surgery capable hospital in case he has any problem or complication he can still get surgery done as a backup. We will put a request to [facility]. Further plan will be advised as per progress the patient. Recommendations * Continue current medical management and risk factor modification. Diagnostic RX Recommendation: PCI w/o planned CABG Pressures Phase:Rest AO : 2 / 0 ( 0 ) @ 5:05:00 PM 146 / 70 ( 98 ) @ 5:16:00 PM 212 / 119 ( 107 ) @ 5:19:00 PM 162 / 80 ( 115 ) @ 5:27:00 PM 160 / 78 ( 113 ) @ 5:27:00 PM 156 / 75 ( 109 ) @ 5:27:00 PM 165 / 84 ( 118 ) @ 5:28:00 PM 129 / 91 ( 110 ) @ 5:29:00 PM LV : 156 / 3 / 33 @ 5:27:00 PM 156 / 5 / 33 @ 5:27:00 PM Valves Phase:DefaultPhase AV : 0.0 @ 4:48:24 PM AV Mean Gradient: 0.0 @ 4:48:24 PM Clinical Evaluation EBL: 5mL-10mL Procedural Details Procedure Consent Obtained. Admit Source: In Patient. Current Diagnosis : NSTEMI. Pre-Procedure Time Out. Identified patient by full name and date of as verbalized by the patient/guarantor. Does the consent match the physician's order: Yes. Accurate & Complete Informed Consent: Yes. Inpatient/Outpatient History & Physical on Chart: Yes. If H&P is completed, is and addenduem needed: No; If yes, is the addendum complete: N/A. Visualize and Verify Site with Patient/Guarantor: N/A. Relevant Radiology Images available: N/A. The risks, benefits, and alternatives of sedation and/or procedure were discussed by physician. The patient agrees to continue. [facility] Clinical Fraility Score: 3: Managing Well. [facility] Indications: LV Dysfunction. Chest Pain Symptom Assessment: Typical Angina Symptoms. Cardiovascular Instability: No. Correct patient, site and procedure confirmed by cath team. Current diagnosis: NSTEMI. PERRLA. Strong, equal hand stockroom selector bilaterally. Lungs clear x 5 lobes. IV Site on Arrival: 20 gauge in the left hand. IV Fluids: 0.9% NaCl at KVO. 500 mL infused prior to feed mill lab technician. Pre Procedural Pulses: bilateral posterior tibial was Doppled. Pre Procedural Pulses: bilateral dorsalis pedis was Doppled. Pre Procedural Pulses: bilateral radial was 3+. Oxygen started at 3liters/min via nasal canula. bilateral groins was prepped with chloroprep then draped in the usual sterile fashion. Physician notified. Baseline sample Acquired. HR: 102 BPM. Physician arrived. Physician scrubbed in. Immediate Pre-Procedure Time Out. Correct Patient: Yes; Correct Procedure: Yes; Correct Site: Yes; Correct Patient Position: Yes; Correct Supplies: Yes; Dried Flammable Prep: Yes; Blood Products Available: N/A;. Procedure started. Lidocaine 1% infiltrated to the right radial. Arterial access obtained. A 5 malagasy JL4 catheter in over wire. Multiple views taken of left coronary artery. Catheter removed over the standard wire. A 5 malagasy JR4 catheter in over wire. Multiple views taken of right coronary artery. SVG to PDA occluded. SVG to Diaganol and OM1 occluded. QUINTERO to LAD visualized. Catheter removed over the exchange wire. A 5 malagasy Angled Pig catheter in over wire. EDP Sample taken: LV 156/3,33; HR: 101 BPM; SpO2: Off%. Pullback taken: LV 156/5,33; AO 162/80(115); Mean: 0mmHg, Peak to Peak: 0mmHg, SEP: 21sec/min; HR: 97 BPM; SpO2: 100%. Aortogram performed in [place]RAIN[place] @ 10 mL/second for a total of 30 mL. Aortogram performed in [place]RA[place]IAN @ 20 mL/second for a total of 40 mL. Catheter removed over the wire. Physician review of films. A Right femoral angiogram was performed to determine safe placement of closure device. A Angio-Seal VIP ([facility]) was successful obtaining hemostatsis at the Right Femoral artery insertion site. Angioseal placed without complications. No signs or symptoms of hematoma noted. Sterile dressing applied per usual sterile fashion. LOT [id number] EXP 10/23/2024. Post Procedure: Pulses reassessed and unchanged. PERRLA. Strong, equal hand stockroom selector bilaterally. No VTE prophylaxis required. Medication's Wasted: Lidocaine 1% = 12 ML, Heparin = 1000 UNITS Fentanyl = 50 mcg. Total IV fluids: 40 mL. Fluoro: 6:01. Contrast type used: Omnipaque 300 mgI/mL, 500 mL bottle. [id number]. Post-op diagnosis: Severe Multivessel CAD; Closed SVG to PDA; OM and Diagonal. Complications: None. Estimated blood loss: 5mL-10mL. Responsiveness - Normal response to verbal stimuli; alert and oriented, PERRLA. Airway - Unaffected, no intervention required; spontaneous ventilation. Circulation: W/N/L, pulses unchanged. Nausea/Vomiting: No. Procedure completed. Patient transferred by bed to 1st floor. Vital chart was stopped. Access Site Site: Right Femoral artery Sheath Size: 6 Fr Hemostasis Method: Angio-Seal VIP ([place] [facility]) Hemostasis Success: Successful Procedure Medications Start: 3:51 PM Stop: 3:51 PM Medication: Versed Amount: 1 mg Route: I.V. Start: 3:51 PM Stop: 3:51 PM Medication: Fentanyl Amount: 50 mcg Route: I.V. Start: 4:20 PM Stop: 4:20 PM Medication: Versed Amount: 1 mg Route: I.V. Start: 4:31 PM Stop: 4:31 PM Medication: Lasix (furosemide) Amount: 60 mg Route: I.V. I, the attending physician, have reviewed and verified all procedure medications. Yes, all medications given per verbal order History/Risk Factors Hypertension: Yes Dyslipidemia: Yes Peripheral Arterial Disease (PAD): No Myocardial Infarction (CT): Yes Obesity: Yes Renal Disease: No Tobacco Use: Former Prior Interventions PCI: No CABG: Yes Valve Surgery: No Report Signatures Finalized by Frances Art MD on 04/26/2024 12:38 PM
[2024-04-23] MEDS: pantoprazole DR 40 mg Tablet PO (08:20)
[2024-04-23] MEDS: clopidogrel 75 mg Tablet PO (08:20)
[2024-04-23] MEDS: aspirin 81 mg EC Tablet PO (08:21)
[2024-04-23] MEDS: metoprolol succinate ER (24 HR) 25 mg Tablet PO (08:21)
--- NOTE | 2024-04-23 10:17 | PM.PN ---
Subjective Subjective: Patient seen this morning on rounds. He did have some severe reflux last night that was relieved with Tums. Denies any chest pain at this time. He is stable at the time. Blood pressure on my assessment was soft. Creatinine stable at 1.1. Patient's echo showed EF of 20-25% which has significantly decreased from 46%. Vitals/I&O/Wt Last Vital Signs Temp 97.8 F 04/23/24 07:55 Pulse 106 H 04/23/24 07:55 Resp 20 H 04/23/24 07:55 BP 141/94 04/23/24 07:55 Pulse Ox 96 04/23/24 07:55 O2 Del Method Room Air 04/23/24 07:55 04/22/24 04/23/24 04/23/24 22:59 06:59 14:59 Intake Total 240 / 240 240 / 240 Balance 240 / -60 240 / 240 Weight last 48 hrs Weight 180 lb 4.8 oz Weight 184 lb 6 oz Weight 190 lb Physical Exam Narrative: General: No apparent distress, healthy appearing, well nourished Muskuloskeletal: Full ROM Lymphatic: no lymphedema noted Respiratory: Normal respiratory effort, clear to auscultation bilaterally throughout all lung nino, no use of accessory muscles Cardio: No JVD, regular rate, regular rhythm, S1 S2 normal, no murmurs, peripheral pulses 2+ radial palpated bilaterally GI: Normal to inspection, nondistended Extremities: Full ROM, normal, normal capillary refill, no cyanosis or edema Neuro: Alert and oriented x4, no focal motor deficits Psych: Affect normal, denies suicidal ideation, mental status grossly normal Skin: No rashes or lesions noted, no wounds Data 04/23/24 03:40 04/23/24 03:40 A&P Assessment and plan (1) History of heart attack: (2) History of quadruple bypass: (3) Atherosclerosis of coronary artery of [place] heart without angina pectoris: Qualifiers: Coronary Disease-Associated Artery/Lesion type: [place] artery Qualified Code(s): I25.10 - Atherosclerotic heart disease of [place] coronary artery without angina pectoris (4) Benign essential HTN: (5) Ischemic cardiomyopathy: (6) Acute non-ST elevation myocardial infarction (NSTEMI): Plan Patient getting a left heart cath today. Cannot put him on a nitro drip at this time due to softer bp, but he is stable without chest pain. EF has a significant drop, which may be from restenosis of a graft. Will start GDMT after heart cath and once bp allows. Continue metoprolol succinate for now. Continue asa and plavix. Continue statin. PDMP PDMP Reviewed: Not Reviewed Attestations Medical Necessity Statement*: Patient stay expected to cross 2 midnights due to above defined care. Coding Level of Care Code Acute Code for Chg Fwd Diagnoses History of heart attack I25.2 History of quadruple bypass Z95.1 Atherosclerosis of [place] coronary artery of [place] heart without angina pectoris I25.10 Coronary Disease-Associated Artery/Lesion type: [place] artery Benign essential HTN I10 Ischemic cardiomyopathy I25.5 Acute non-ST elevation myocardial infarction (NSTEMI) I21.4
[2024-04-23] MEDS: sodium chloride 0.9% 1,000 ML 50 ML IV (10:28)
--- NOTE | 2024-04-23 12:21 | P.PN_ITS ---
Subjective 2 Subjective: 69-year-old male with a past medical his tory of GERD, hypertension, dyslipidemia, coronary artery disease status post quadruple coronary artery bypass graft (CABG) in 05/2022, congestive heart failure with ejection fraction of 46% who presents with intermittent left arm numbness and tingling for the past 2-3 days. The numbness and tingling sensation is described as similar to the feeling of sleeping on one's arm, lasting 3-4 minutes per episode and occurring 7-8 times today. Associated symptoms include heartburn described as a burning sensation and nausea without vomiting. Denies chest pain or shortness of breath. Reports compliance with medications.Additional history includes left shoulder pain following a fall 3-4 years ago and another fall 4-5 years ago, with persistent shoulder pain since the first cardiac surgery. Also notes chronic neck pain attributed to arthritis. Denies any prior cervical spine issues.Patient was noted to have elevated troponin at 362.This was repeated after 120 minutes and found to be 373.4. Delta of 11.4. Patient was continued on Lovenox. He was loaded with aspirin and Plavix. Cardiology was consulted. Echocardiogram was performed which showedAn ejection fraction of 20 to 25%.Grade 1 diastolic dysfunction.Ejection fraction has significantly decreased from 46% on echocardiogram last year. Subjective 04/23/2024 No new clinical events overnight. Patient stated he did not have any chest discomfort. He stated that he did have some heartburn which was relieved with Tums.Did not have any neurological deficits Vitals/I&O/Wt Last Vital Signs Temp 98.0 F 04/23/24 12:00 Pulse 98 04/23/24 12:00 Resp 18 04/23/24 12:00 BP 119/72 04/23/24 12:00 Pulse Ox 96 04/23/24 07:55 O2 Del Method Room Air 04/23/24 07:55 04/22/24 04/23/24 04/23/24 22:59 06:59 14:59 Intake Total 240 / 240 240 / 240 Balance 240 / -60 240 / 240 Weight last 48 hrs Weight 81.783 kg Weight 83.631 kg Weight 86.183 kg Physical Exam 2 Narrative: - Examination unchanged today. - Cardiovascular: RRR - Respiratory: Lungs clear to auscultati on bilaterally. No respiratory distress. - Gastrointestinal: Noted heartburn, maynor cribed as burning sensation. No abdominal pain or tenderness. Nondistended - Musculoskeletal: Intermittent left arm numbness and tingling. Chronic left shoulder pain. - Neurological: No focal neurological de ficits. Data 04/23/24 03:40 04/23/24 03:40 A&P Assessment and plan (1) Acute non-ST elevation myocardial infarction (NSTEMI): (2) Benign essential HTN: (3) History of quadruple bypass: (4) History of heart attack: (5) Dyslipidemia: (6) History of coronary artery bypass graft: Plan NSTEMI - 69-year-old male with extensive cardiac history presenting with intermittent left arm numbness and tingling concerning for unstable angina in the setting of elevated troponin. No evidence of acute ST-elevation myocardial infarction on EKG.Delta 11 noted on admission. EKG did not show any evidence of ST elevation [place]. Patient was started on full dose Lovenox. Aspirin and loaded with Plavix in emergency room. Cardiology has been consulted. Echocardiogram today showed a significant decrease in ejection fraction. Plan: 1. Continue ischemic work up as per cardiology 2. NPO for cardiac cath 3. Antiplatelet, statin, lovenox Acute on chronic HFrEF - History of congestive heart failure with last known ejection fraction of 46% in 2023. No overt signs or symptoms of acute decompensation on presentation.Now echo is noted to have significant decrease to 26%, Ischemic work up above. Plan: 1. Continue home Entresto 97/103 mg twice daily following cardiac cath and metoprolol succinate 25 mg daily 2. Optimize GDMT meds, will consider farxiga, aldactone and diuretics at discharge 3. Cardiology managing Gastroesophageal Reflux Disease - Reports symptoms of heartburn without chest pain, currently managed with proton pump inhibitor therapy. Plan: 1. Continue proton pump inhibitor. Chronic Left Shoulder Pain - History of left shoulder pain following falls 3-4 and 4-5 years ago, with persistent pain since first cardiac surgery. No evidence of acute fracture or dislocation. Plan: 1. Stable, left shoulder xray- negative PDMP PDMP Reviewed: Not Reviewed Attestations 2 Medical Necessity Statement*: Given your worsening heart failure, will need over 2 midnight stay in hospital for cardiac optimization. Coding Level of Care Code Acute Code for [facility] Fwd Diagnoses Acute non-ST elevation myocardial infarction (NSTEMI) I21.4 Benign essential HTN I10 History of quadruple bypass Z95.1 History of heart attack I25.2 Dyslipidemia E78.5 History of coronary artery bypass graft Z95.1
[2024-04-23] MEDS: diphenhydrAMINE 50 mg Capsule PO (14:12)
--- NOTE | 2024-04-23 15:46 | PC.NURSE ---
to cardiac slab miller operator via bed at this time
--- NOTE | 2024-04-23 15:52 | W.PM.OPSUD ---
Surgery/Procedure H&P Update DATE OF PROCEDURE: April 23, 2024 DATE H&P PERFORMED: 04/22/24 H&P UPDATE INFORMATION: I have reviewed H&P completed within last 30 days, I have examined patient prior to procedure and No changes to prior documentation CHANGES TO PREVIOUS DOCUMENTATION: Non-ST elevation [place] is the indication for left heart cath. PRIMARY INDICATION FOR PROCEDURE: Left heart cath for non-ST elevation [place] PLANNED PROCEDURE: Operation Date: 04/23/24 13:50 Proposed Procedures p Cardiac Catheterization(Left) - Frances Art MD PATIENT REASSESSED PRIOR TO SEDATION, WITH NO CHANGE NOTED: Yes PHYSICAL EXAM: alert, oriented x 3, clear to auscultation bilaterally, regular rate & rhythm and operative site marked OTHER PERTINENT EXAM FINDINGS: All risk-benefit and alternative for the procedure has been explained to the patient, patient understand 2% risk of stroke major bleed, patient understand 6% risk of contrast-induced nephropathy minor bleeding oozing hematoma pseudoaneurysm. Patient would like to proceed with it.
--- NOTE | 2024-04-23 17:01 | PM.PROC ---
Procedure Note: Date of procedure: 04/23/24 Pre-procedure diagnosis: Non-ST elevation [place] Post-procedure diagnosis: same Procedure: Patient had a left heart cath with prior history of CABG. He was noted to have occluded to vein graft SVG to PDA and SVG to diagonal skip to a previous marginal, QUINTERO to LAD was patent. Patient has high-grade distal left main and subtotal occlusion of left circumflex in the [place] artery. Patient has high-grade proximal torturous and distal RCA. Ejection fraction was severely depressed LVEDP was elevated at 39 mmHg Plan to diurese and optimize medical management Once euvolemic consider complex PCI with Impella guidance to RCA left main and circumflex plan for early next week. Continue aspirin statin Continue IV Lasix 40 mg twice daily Continue potassium chloride 20 mg twice daily Continue Entresto Continue beta-rupesh Coding Level of Care Code Acute Code for Chg Fwd
--- NOTE | 2024-04-23 17:19 | PC.NURSE ---
received from cardiac labor training manager via bed at 1700.report received.pt is alert and awake and oriented x 4.denies pain at present.sr/st on monitor.right arterial femoral sheath pulled in the [facility] lab and angioseal was applied.right groin with drsg dry and intact.no hematoma present.right leg is warm to touch and with brisk capillary refill.palpable dp pulse noted.pt instructed in activity restrictions s/p right femoral artery procedure...and instructed to notify staff for any bleeding,pain,numbness,sob,or for any concerns at all.pt verb understanding of instructions.
[2024-04-23] MEDS: nitroglycerin drip 50 MG/250 ML PREMIX IV (17:37)
--- NOTE | 2024-04-23 18:56 | PC.NURSE ---
ntg drip started for increased bp post cath,as ordered.paused for bp's 120's-130's systolic
[2024-04-23] MEDS: atorvastatin 40 mg Tablet PO (20:35)
[2024-04-24] VITALS (8 sets, daily range): BP systolic 121–140; BP diastolic 69–83; PULSE 90–97; RESP 16–26; TEMP 36.4–37.3; O2SAT 93–97
[2024-04-24] MEDS: enoxaparin 80 mg/0.8 mL Syringe SUBCUT ×2 (00:48→12:57)
[2024-04-24 05:19] LABS: Basophils # 0.1 10^3/uL (0.0-0.1); Basophils % 0.8 %; Eosinophils # 0.2 10^3/uL (0.0-0.8); Eosinophils % 1.9 %; Hematocrit 41.4 % (37-53); Lymphocytes # 1.7 10^3/uL (0.8-4.8); Lymphocytes % 17.4 %; Mean Corpuscular HGB Conc 31.6 g/dL (30-55); Mean Platelet Volume 10.8 fL (7.4-10.4); Monocytes # 1.2 10^3/uL (0.2-0.9); Monocytes % 11.8 %; Neutrophils # 6.65 10^3/uL (1.8-7.7); Nucleated Red Blood Cells % 0 %; Platelet Count 249 10^3/cmm (157-399); Red Blood Count 4.36 10^6/uL (3.85-5.65); Red Cell Distribution Width 14.6 % (12.1-15.1); White Blood Count 9.78 10^3/uL (3.29-11.43)
[2024-04-24 05:40] LABS: Anion Gap 14.9 (5-19); Blood Urea Nitrogen 23 mg/dL (8-23); Calcium 9.1 mg/dL (8.5-10.5); Carbon Dioxide 22 mmol/L (22-29); Chloride 107 mmol/L (98-107); Glomerular Filtration Rate 55.1 mL/min (90-130); Glucose 104 mg/dL (65-115); Osmolality Calculated 294 mOsm/kg (285-295); Potassium 3.9 mmol/L (3.5-5.1); Sodium 140 mmol/L (136-145)
[2024-04-24] MEDS: metoprolol succinate ER (24 HR) 25 mg Tablet PO (09:19)
[2024-04-24] MEDS: pantoprazole DR 40 mg Tablet PO (09:19)
[2024-04-24] MEDS: aspirin 81 mg EC Tablet PO (09:19)
[2024-04-24] MEDS: clopidogrel 75 mg Tablet PO (09:19)
--- NOTE | 2024-04-24 14:45 | P.PN_ITS ---
Subjective 2 Subjective: 69-year-old male with a past medical his tory of GERD, hypertension, dyslipidemia, coronary artery disease status post quadruple coronary artery bypass graft (CABG) in 05/2022, congestive heart failure with ejection fraction of 46% who presents with intermittent left arm numbness and tingling for the past 2-3 days. The numbness and tingling sensation is described as similar to the feeling of sleeping on one's arm, lasting 3-4 minutes per episode and occurring 7-8 times today. Associated symptoms include heartburn described as a burning sensation and nausea without vomiting. Denies chest pain or shortness of breath. Reports compliance with medications.Additional history includes left shoulder pain following a fall 3-4 years ago and another fall 4-5 years ago, with persistent shoulder pain since the first cardiac surgery. Also notes chronic neck pain attributed to arthritis. Denies any prior cervical spine issues.Patient was noted to have elevated troponin at 362.This was repeated after 120 minutes and found to be 373.4. Delta of 11.4. Patient was continued on Lovenox. He was loaded with aspirin and Plavix. Cardiology was consulted. Echocardiogram was performed which showedAn ejection fraction of 20 to 25%.Grade 1 diastolic dysfunction.Ejection fraction has significantly decreased from 46% on echocardiogram last year. Subjective 04/23 No new clinical events overnight. Patient stated he did not have any chest discomfort. He stated that he did have some heartburn which was relieved with Tums.Did not have any neurological deficits 04/24 Patient stated he felt fine no new clinical events overnight. Denies chest pain or shortness of breath. Vitals/I&O/Wt Last Vital Signs Temp 98.4 F 04/24/24 12:00 Pulse 93 04/24/24 12:00 Resp 21 H 04/24/24 12:00 BP 131/69 04/24/24 12:00 Pulse Ox 97 04/24/24 12:00 O2 Del Method Room Air 04/24/24 12:00 04/23/24 04/24/24 04/24/24 22:59 06:59 14:59 Intake Total 661.3 / 901.3 1000 / 1901.3 320 / 320 Output Total 1850 / 1850 400 / 2250 Balance -1188.7 / -948.7 600 / -348.7 320 / 320 Weight last 48 hrs Weight 81.556 kg Weight 81.783 kg Weight 83.631 kg Physical Exam 2 Narrative: - Examination unchanged today. - Cardiovascular: RRR - Respiratory: Lungs clear to auscultati on bilaterally. No respiratory distress. - Gastrointestinal: Noted heartburn, maynor cribed as burning sensation. No abdominal pain or tenderness. Nondistended - Musculoskeletal: Intermittent left arm numbness and tingling. Chronic left shoulder pain. - Neurological: No focal neurological de ficits. Data 04/24/24 04:20 04/24/24 04:20 A&P Assessment and plan (1) Acute non-ST elevation myocardial infarction (NSTEMI): (2) Benign essential HTN: (3) History of quadruple bypass: (4) History of heart attack: (5) Dyslipidemia: (6) History of coronary artery bypass graft: Plan NSTEMI - 69-year-old male with extensive cardiac history presenting with intermittent left arm numbness and tingling concerning for unstable angina in the setting of elevated troponin. No evidence of acute ST-elevation myocardial infarction on EKG.Delta 11 noted on admission. EKG did not show any evidence of ST elevation [place]. Patient was started on full dose Lovenox. Aspirin and loaded with Plavix in emergency room. Cardiology has been consulted. Echocardiogram today showed a significant decrease in ejection fraction. -Patient was taken for cardiac cath yesterday - see full report -Aspirin 81 mg daily, Plavix 75 mg daily, metoprolol XL 25 mg daily, Lipitor 40 mg at bedtime Plan: 1. Plan to return to cardiac cath on friday 2. Continue current management as above Mild JEANCARLOS - Creatinine today 1.3 Plan: 1. S/p IVF yesterday per cards 2. BMP in a m 3. Monitor urine output Acute on chronic HFrEF - History of congestive heart failure with last known ejection fraction of 46% in 2023. No overt signs or symptoms of acute decompensation on presentation.Now echo is noted to have significant decrease to 26%, Ischemic work up above. Plan: 1. Continue ischemic work up as above 2. Optimize GDMT meds 3. Cardiology managing Gastroesophageal Reflux Disease - Reports symptoms of heartburn without chest pain, currently managed with proton pump inhibitor therapy. Plan: 1. Continue proton pump inhibitor. Chronic Left Shoulder Pain - History of left shoulder pain following falls 3-4 and 4-5 years ago, with persistent pain since first cardiac surgery. No evidence of acute fracture or dislocation. Plan: 1. Stable, left shoulder xray- negative PDMP PDMP Reviewed: Not Reviewed Attestations 2 Medical Necessity Statement*: Patient requires ongoing hospitalization for management of above. Coding Level of Care Code Acute Code for [facility] Fwd Diagnoses Acute non-ST elevation myocardial infarction (NSTEMI) I21.4 Benign essential HTN I10 History of quadruple bypass Z95.1 History of heart attack I25.2 Dyslipidemia E78.5 History of coronary artery bypass graft Z95.1
--- NOTE | 2024-04-24 15:03 | P.PN_ITS ---
Subjective 2 Subjective: Status post left heart cath yesterday noted to have occluded saphenous venous graft to RCA and occluded saphenous venous skip graft to diagonal and obtuse marginal, QUINTERO to LAD was patent. Left ventricular ejection fraction is severely depressed less than 35% Vitals/I&O/Wt Last Vital Signs Temp 98.4 F 04/24/24 12:00 Pulse 93 04/24/24 12:00 Resp 21 H 04/24/24 12:00 BP 131/69 04/24/24 12:00 Pulse Ox 97 04/24/24 12:00 O2 Del Method Room Air 04/24/24 12:00 04/24/24 04/24/24 04/24/24 06:59 14:59 22:59 Intake Total 1000 / 1901.3 320 / 320 Output Total 400 / 2250 Balance 600 / -348.7 320 / 320 Weight last 48 hrs Weight 179 lb 12.8 oz Weight 180 lb 4.8 oz Weight 184 lb 6 oz Physical Exam 2 Const: COMMON NORMALS: alert OTHER: GENERAL: Patient is alert, awake and oriented x3. HEART: Regular S1 and S2. No murmur, rub or gallop. LUNGS: Clear to auscultate bilaterally. CENTRAL NERVOUS SYSTEM: Grossly nonfocal. EXTREMITIES: Lower extremities with out edema bilaterally. Resp: COMMON NORMALS: clear to auscultation bilaterally AUSCULTATION: clear to auscultation bilaterally Neuro: SENSORIUM/ORIENTATION: Yes alert Data 04/24/24 04:20 04/24/24 04:20 A&P Assessment and plan (1) History of heart attack: (2) History of quadruple bypass: (3) Atherosclerosis of coronary artery of [place] heart without angina pectoris: Qualifiers: Coronary Disease-Associated Artery/Lesion type: [place] artery Qualified Code(s): I25.10 - Atherosclerotic heart disease of [place] coronary artery without angina pectoris (4) Benign essential HTN: (5) Ischemic cardiomyopathy: (6) Acute non-ST elevation myocardial infarction (NSTEMI): Plan Patient has occluded both saphenous venous graft as defined above Plan is to optimize medical management and reduced left ventricular end- diastolic pressure he was given Lasix however creatinine went up will discontinue Lasix Continue beta-rupesh aspirin statin Plavix isosorbide mononitrate. Will monitor creatinine if further goes up we will stop Entresto Plan for Impella guided intervention to left main circumflex and RCA on Friday. Patient and family by bedside including his son and his ex- has been explained all risk-benefit and alternative for the procedure patient would like to proceed with it. PDMP PDMP Reviewed: Not Reviewed Attestations 2 Medical Necessity Statement*: Patient require continuation hospitalization for above defined care. Coding Level of Care Code Acute Code for Chg Fwd Diagnoses History of heart attack I25.2 History of quadruple bypass Z95.1 Atherosclerosis of [place] coronary artery of [place] heart without angina pectoris I25.10 Coronary Disease-Associated Artery/Lesion type: [place] artery Benign essential HTN I10 Ischemic cardiomyopathy I25.5 Acute non-ST elevation myocardial infarction (NSTEMI) I21.4
[2024-04-24] MEDS: atorvastatin 40 mg Tablet PO (20:42)
[2024-04-25] VITALS (9 sets, daily range): BP systolic 116–137; BP diastolic 62–81; PULSE 79–93; RESP 17–20; TEMP 36.4–36.8; O2SAT 93–98
[2024-04-25] MEDS: enoxaparin 80 mg/0.8 mL Syringe SUBCUT ×2 (00:21→12:13)
[2024-04-25 04:57] LABS: Basophils # 0.1 10^3/uL (0.0-0.1); Basophils % 0.5 %; Eosinophils # 0.4 10^3/uL (0.0-0.8); Eosinophils % 4.1 %; Hematocrit 38.6 % (37-53); Lymphocytes # 1.9 10^3/uL (0.8-4.8); Lymphocytes % 19.3 %; Mean Corpuscular HGB Conc 32.4 g/dL (30-55); Mean Corpuscular Hemoglobin 29.6 pg (27-33); Mean Corpuscular Volume 91.3 fl (82-101); Mean Platelet Volume 11.2 fL (7.4-10.4); Monocytes # 1.1 10^3/uL (0.2-0.9); Monocytes % 10.9 %; Neutrophils # 6.38 10^3/uL (1.8-7.7); Nucleated Red Blood Cells % 0 %; Platelet Count 226 10^3/cmm (157-399); Red Blood Count 4.23 10^6/uL (3.85-5.65); Red Cell Distribution Width 14.2 % (12.1-15.1); White Blood Count 9.81 10^3/uL (3.29-11.43)
[2024-04-25 05:18] LABS: Alanine Aminotransferase 19 U/L (0-41); Albumin Level 3.4 g/dL (3.5-5.2); Alkaline Phosphatase 101 U/L (40-130); Anion Gap 13.7 (5-19); Aspartate Amino Transferase 22 U/L (0-40); Blood Urea Nitrogen 27 mg/dL (8-23); Calcium 8.8 mg/dL (8.5-10.5); Carbon Dioxide 23 mmol/L (22-29); Chloride 106 mmol/L (98-107); Globulin 3.3 g/dL (1.3-4.6); Glomerular Filtration Rate 60.4 mL/min (90-130); Glucose 97 mg/dL (65-115); Osmolality Calculated 293 mOsm/kg (285-295); Potassium 3.7 mmol/L (3.5-5.1); Sodium 139 mmol/L (136-145); Total Bilirubin 0.5 mg/dL (0.15-1.2); Total Protein 6.7 g/dL (6.6-8.7)
[2024-04-25] MEDS: aspirin 81 mg EC Tablet PO (08:26)
[2024-04-25] MEDS: pantoprazole DR 40 mg Tablet PO (08:26)
[2024-04-25] MEDS: clopidogrel 75 mg Tablet PO (08:26)
[2024-04-25] MEDS: metoprolol succinate ER (24 HR) 25 mg Tablet PO (08:26)
--- NOTE | 2024-04-25 09:44 | P.PN_ITS ---
Subjective 2 Subjective: 69-year-old male with a past medical his tory of GERD, hypertension, dyslipidemia, coronary artery disease status post quadruple coronary artery bypass graft (CABG) in 05/2022, congestive heart failure with ejection fraction of 46% who presents with intermittent left arm numbness and tingling for the past 2-3 days. The numbness and tingling sensation is described as similar to the feeling of sleeping on one's arm, lasting 3-4 minutes per episode and occurring 7-8 times today. Associated symptoms include heartburn described as a burning sensation and nausea without vomiting. Denies chest pain or shortness of breath. Reports compliance with medications.Additional history includes left shoulder pain following a fall 3-4 years ago and another fall 4-5 years ago, with persistent shoulder pain since the first cardiac surgery. Also notes chronic neck pain attributed to arthritis. Denies any prior cervical spine issues.Patient was noted to have elevated troponin at 362.This was repeated after 120 minutes and found to be 373.4. Delta of 11.4. Patient was continued on Lovenox. He was loaded with aspirin and Plavix. Cardiology was consulted. Echocardiogram was performed which showedAn ejection fraction of 20 to 25%.Grade 1 diastolic dysfunction.Ejection fraction has significantly decreased from 46% on echocardiogram last year. Subjective 04/23 No new clinical events overnight. Patient stated he did not have any chest discomfort. He stated that he did have some heartburn which was relieved with Tums.Did not have any neurological deficits 04/24 Patient stated he felt fine no new clinical events overnight. Denies chest pain or shortness of breath. 04/25 - Noted good night last night - No chest pain or numbness today. Had q uite a bit of numbness and tingling yesterday afternoon in in left upper extremity mainly fingers, but not today - No dyspnea. No fever, chills, nausea o r vomiting. Vitals/I&O/Wt Last Vital Signs Temp 98.0 F 04/25/24 07:22 Pulse 88 04/25/24 07:22 Resp 17 04/25/24 07:22 BP 130/76 04/25/24 07:22 Pulse Ox 96 04/25/24 07:22 O2 Del Method Room Air 04/25/24 07:22 04/24/24 04/25/24 04/25/24 22:59 06:59 14:59 Intake Total 300 / 620 240 / 860 480 / 480 Balance 300 / 620 240 / 860 480 / 480 Weight last 48 hrs Weight 81.012 kg Weight 81.556 kg Physical Exam 2 Const: COMMON NORMALS: alert OTHER: GENERAL: Patient is alert, awake and oriented x3. HEART: Regular S1 and S2. No murmur, rub or gallop. LUNGS: Clear to auscultate bilaterally. CENTRAL NERVOUS SYSTEM: Grossly nonfocal. EXTREMITIES: Lower extremities with out edema bilaterally. Resp: COMMON NORMALS: clear to auscultation bilaterally AUSCULTATION: clear to auscultation bilaterally Neuro: SENSORIUM/ORIENTATION: Yes alert Data 04/25/24 04:17 04/25/24 04:17 A&P Assessment and plan (1) Acute non-ST elevation myocardial infarction (NSTEMI): (2) Benign essential HTN: (3) History of quadruple bypass: (4) History of heart attack: (5) Dyslipidemia: (6) History of coronary artery bypass graft: Plan NSTEMI - 69-year-old male with extensive cardiac history presenting with intermittent left arm numbness and tingling concerning for unstable angina in the setting of elevated troponin. No evidence of acute ST-elevation myocardial infarction on EKG.Delta 11 noted on admission. EKG did not show any evidence of ST elevation [place]. Patient was started on full dose Lovenox. Aspirin and loaded with Plavix in emergency room. Cardiology has been consulted. Echocardiogram showed left ventricular ejection fraction is severely depressed less than 35% -Patient was taken for cardiac cath yesterday Status post left heart cath yesterday noted to have occluded saphenous venous graft to RCA and occluded saphenous venous skip graft to diagonal and obtuse marginal, QUINTERO to LAD was patent. -Aspirin 81 mg daily, Plavix 75 mg daily, metoprolol XL 25 mg daily, Lipitor 40 mg at bedtime Plan: 1. Plan to return to cardiac cath on friday for impalla guided intervention to left main circumflex and RCA 2. Continue current management as above Mild JEANCARLOS - improving - Creatinine today 1.2 Plan: 1. S/p IVF yesterday per cards 2. BMP in a m 3. Monitor urine output Acute on chronic HFrEF - History of congestive heart failure with last known ejection fraction of 46% in 2023. No overt signs or symptoms of acute decompensation on presentation.Now echo is noted to have significant decrease to 26%, Ischemic work up above. Plan: 1. Continue ischemic work up as above 2. Optimize GDMT meds 3. Cardiology managing Gastroesophageal Reflux Disease - Reports symptoms of heartburn without chest pain, currently managed with proton pump inhibitor therapy. Plan: 1. Continue proton pump inhibitor. Chronic Left Shoulder Pain - History of left shoulder pain following falls 3-4 and 4-5 years ago, with persistent pain since first cardiac surgery. No evidence of acute fracture or dislocation. Plan: 1. Stable, left shoulder xray- negative PDMP PDMP Reviewed: Not Reviewed Attestations 2 Medical Necessity Statement*: Patient requires ongoing hospitalization for management of above. Coding Level of Care Code Acute Code for g Fwd Diagnoses Acute non-ST elevation myocardial infarction (NSTEMI) I21.4 Benign essential HTN I10 History of quadruple bypass Z95.1 History of heart attack I25.2 Dyslipidemia E78.5 History of coronary artery bypass graft Z95.1
--- NOTE | 2024-04-25 15:41 | PM.PN ---
Subjective Subjective: Patient feeling much better today no more chest pain mild GERD like event yesterday Vitals/I&O/Wt Last Vital Signs Temp 97.5 F L 04/25/24 11:19 Pulse 92 04/25/24 11:19 Resp 19 H 04/25/24 11:19 BP 129/81 04/25/24 11:19 Pulse Ox 98 04/25/24 11:19 O2 Del Method Room Air 04/25/24 11:19 04/25/24 04/25/24 04/25/24 06:59 14:59 22:59 Intake Total 240 / 860 480 / 480 Balance 240 / 860 480 / 480 Weight last 48 hrs Weight 178 lb 9.6 oz Weight 179 lb 12.8 oz Physical Exam Const: COMMON NORMALS: alert OTHER: GENERAL: Patient is alert, awake and oriented x3. HEART: Regular S1 and S2. No murmur, rub or gallop. LUNGS: Clear to auscultate bilaterally. CENTRAL NERVOUS SYSTEM: Grossly nonfocal. EXTREMITIES: Lower extremities with out edema bilaterally. Resp: COMMON NORMALS: clear to auscultation bilaterally AUSCULTATION: clear to auscultation bilaterally Neuro: SENSORIUM/ORIENTATION: Yes alert Data 04/25/24 04:17 04/25/24 04:17 A&P Assessment and plan (1) History of heart attack: (2) History of quadruple bypass: (3) Atherosclerosis of coronary artery of [place] heart without angina pectoris: Qualifiers: Coronary Disease-Associated Artery/Lesion type: [place] artery Qualified Code(s): I25.10 - Atherosclerotic heart disease of [place] coronary artery without angina pectoris (4) Benign essential HTN: (5) Ischemic cardiomyopathy: (6) Acute non-ST elevation myocardial infarction (NSTEMI): Plan Patient has occluded both saphenous venous graft as defined above Plan is to optimize medical management and reduced left ventricular end-diastolic pressure he was given Lasix however creatinine went up will discontinue Lasix Continue beta-rupesh aspirin statin Plavix isosorbide mononitrate. Will monitor creatinine if further goes up we will stop Entresto Plan for Impella guided intervention to left main circumflex and RCA on Friday. Patient and family by bedside including his son and his ex- has been explained all risk-benefit and alternative for the procedure patient would like to proceed with it. On today's visit dated 04/25/2024 patient continue to do fine, continue aspirin statin and beta-rupesh clopidogrel and Entresto. He appeared to be euvolemic. Plan for Impella guided PCI tomorrow. He will be n.p.o. overnight. Patient has been explained all risk-benefit and alternative for the procedure he understand this will be an high risk PCI/procedure due to highly calcified nature of the blood vessel there tortuosities angles and because of the fact patient has very weak heart with ejection fraction less than 25%. Patient understand 2 to 5% risk of stroke major bleed, patient was stent 6 to 10% risk of contrast-induced nephropathy vascular injury urgent or emergent vascular or bypass surgery. He and his sons would like to continue with it. PDMP PDMP Reviewed: Not Reviewed Attestations Medical Necessity Statement*: Patient require continuation of hospitalization Coding Level of Care Code Acute Code for Chg Fwd Diagnoses History of heart attack I25.2 History of quadruple bypass Z95.1 Atherosclerosis of [place] coronary artery of [place] heart without angina pectoris I25.10 Coronary Disease-Associated Artery/Lesion type: [place] artery Benign essential HTN I10 Ischemic cardiomyopathy I25.5 Acute non-ST elevation myocardial infarction (NSTEMI) I21.4
[2024-04-25] MEDS: atorvastatin 40 mg Tablet PO (20:24)
[2024-04-26] VITALS (7 sets, daily range): BP systolic 124–168; BP diastolic 70–89; PULSE 73–94; RESP 16–28; TEMP 36.5–36.9; O2SAT 94–98
[2024-04-26 03:52] LABS: Basophils # 0.1 10^3/uL (0.0-0.1); Basophils % 0.9 %; Eosinophils # 0.4 10^3/uL (0.0-0.8); Hematocrit 35.5 % (37-53); Lymphocytes # 1.5 10^3/uL (0.8-4.8); Lymphocytes % 16.7 %; Mean Corpuscular HGB Conc 32.4 g/dL (30-55); Mean Corpuscular Hemoglobin 29.7 pg (27-33); Mean Corpuscular Volume 91.7 fl (82-101); Mean Platelet Volume 10.9 fL (7.4-10.4); Monocytes % 10.7 %; Neutrophils # 6.18 10^3/uL (1.8-7.7); Neutrophils % 67.3 %; Nucleated Red Blood Cells % 0 %; Platelet Count 183 10^3/cmm (157-399); Red Blood Count 3.87 10^6/uL (3.85-5.65); Red Cell Distribution Width 13.8 % (12.1-15.1); White Blood Count 9.18 10^3/uL (3.29-11.43)
[2024-04-26 04:08] LABS: Alanine Aminotransferase 25 U/L (0-41); Albumin Level 3.1 g/dL (3.5-5.2); Alkaline Phosphatase 95 U/L (40-130); Anion Gap 13.5 (5-19); Aspartate Amino Transferase 27 U/L (0-40); Blood Urea Nitrogen 21 mg/dL (8-23); Calcium 8.7 mg/dL (8.5-10.5); Carbon Dioxide 22 mmol/L (22-29); Chloride 104 mmol/L (98-107); Globulin 3.3 g/dL (1.3-4.6); Glomerular Filtration Rate 74.5 mL/min (90-130); Glucose 95 mg/dL (65-115); Osmolality Calculated 285 mOsm/kg (285-295); Potassium 3.5 mmol/L (3.5-5.1); Sodium 136 mmol/L (136-145); Total Bilirubin 0.5 mg/dL (0.15-1.2); Total Protein 6.4 g/dL (6.6-8.7)
[2024-04-26] MEDS: metoprolol succinate ER (24 HR) 25 mg Tablet PO (07:50)
[2024-04-26] MEDS: aspirin 81 mg EC Tablet PO (07:50)
[2024-04-26] MEDS: diphenhydrAMINE 50 mg Capsule PO (07:50)
[2024-04-26] MEDS: pantoprazole DR 40 mg Tablet PO (07:50)
[2024-04-26] MEDS: clopidogrel 75 mg Tablet PO (07:50)
[2024-04-26] MEDS: sodium chloride 0.9% 1,000 ML 50 ML IV (07:51)
--- NOTE | 2024-04-26 09:34 | PM.PN ---
Documented by User: [email or web address] Sheets 04/26/24 09:42 Subjective Subjective: He has not had any chest pain overnight. Blood pressure in the 130s systolic. He appears well compensated, LVEF 35%. Patient is considering PCI versus redo CABG, as options were presented to him yesterday. Creatinine 1.0. Vitals/I&O/Wt Last Vital Signs Temp 98.3 F 04/26/24 07:48 Pulse 94 04/26/24 07:48 Resp 24 H 04/26/24 07:48 BP 135/78 04/26/24 07:48 Pulse Ox 95 04/26/24 07:48 O2 Del Method Room Air 04/26/24 07:48 04/25/24 04/26/24 04/26/24 22:59 06:59 14:59 Intake Total 480 / 1500 Output Total 250 / 250 Balance 480 / 1250 -250 / 1250 Weight last 48 hrs Weight 176 lb 9.6 oz Weight 178 lb 9.6 oz Physical Exam Const: COMMON NORMALS: no acute distress and patient oriented x3 GENERAL APPEARANCE: cooperative ORIENTATION/CONSCIOUSNESS: Yes awake, Yes oriented to person, Yes oriented to place and Yes oriented to time Chest: COMMONS NORMALS: normal inspection of the chest and normal palpation of entire chest wall CHEST: Yes Symmetrical chest wall rise Resp: COMMON NORMALS: normal respiratory effort, No retractions, No use of accessory muscles and clear to auscultation bilaterally AUSCULTATION: clear to auscultation bilaterally Cardio: COMMON NORMALS: regular rate, regular rhythm, S1 normal heart sound present, S2 normal heart sound present, No gallops present (Cardio), No clicks present (Cardio), No murmurs present (Cardio) and No rub (Cardio) RATE: regular rate RHYTHM: regular rhythm HEART SOUNDS: S1 normal heart sound present and S2 normal heart sound present PERIPHERAL PULSES: radial pulses present positive right 2+ and femoral pulses present positive right 2+ Neuro: COMMON NORMALS: patient oriented x3 and moves all extremities SENSORIUM/ORIENTATION: Yes oriented to person, Yes oriented to place and Yes oriented to time Skin: WOUNDS: Yes surgical site (no hematoma palpable) Details: no odor Data 04/26/24 03:28 04/26/24 03:28 A&P Assessment and plan (1) History of heart attack: (2) History of quadruple bypass: (3) Atherosclerosis of coronary artery of [place] heart without angina pectoris: Qualifiers: Coronary Disease-Associated Artery/Lesion type: [place] artery Qualified Code(s): I25.10 - Atherosclerotic heart disease of [place] coronary artery without angina pectoris (4) Benign essential HTN: (5) Ischemic cardiomyopathy: (6) Acute non-ST elevation myocardial infarction (NSTEMI): Plan He plans to let us know which option he would like, either high risk PCI here or transfer for redo CABG. Continue aspirin, Plavix, metoprolol succinate 25 mg daily, atorvastatin 40 mg daily. PDMP PDMP Reviewed: Not Reviewed Attestations Medical Necessity Statement*: Management of severe CAD, possible intervention Coding Level of Care Code Acute Code for Chg Fwd Diagnoses History of heart attack I25.2 History of quadruple bypass Z95.1 Atherosclerosis of [place] coronary artery of [place] heart without angina pectoris I25.10 Coronary Disease-Associated Artery/Lesion type: [place] artery Benign essential HTN I10 Ischemic cardiomyopathy I25.5 Acute non-ST elevation myocardial infarction (NSTEMI) I21.4 Documented by User: Frances Art MD 04/26/24 12:14 Data 04/26/24 03:28 04/26/24 03:28 A&P Assessment and plan (1) History of heart attack: (2) History of quadruple bypass: (3) Atherosclerosis of coronary artery of [place] heart without angina pectoris: Qualifiers: Coronary Disease-Associated Artery/Lesion type: [place] artery Qualified Code(s): I25.10 - Atherosclerotic heart disease of [place] coronary artery without angina pectoris (4) Benign essential HTN: (5) Ischemic cardiomyopathy: (6) Acute non-ST elevation myocardial infarction (NSTEMI): Plan I have detailed discussion with the patient and the family. Patient understand this will be a high risk PCI plus or minus Impella support. After discussion with his family patient would like him to be transferred to the [facility] where CT surgery backup is present. I have requested his transfer. Once accepted will transfer him to [facility]. Continue aspirin statin beta-rupesh Plavix and Entresto. Awaiting [facility] substance and bed PDMP PDMP Reviewed: Not Reviewed Attestations Medical Necessity Statement*: Patient require continuation hospitalization for about defined care Coding Level of Care Code Acute Code for Chg Fwd Diagnoses History of heart attack I25.2 History of quadruple bypass Z95.1 Atherosclerosis of [place] coronary artery of [place] heart without angina pectoris I25.10 Coronary Disease-Associated Artery/Lesion type: [place] artery Benign essential HTN I10 Ischemic cardiomyopathy I25.5 Acute non-ST elevation myocardial infarction (NSTEMI) I21.4
--- NOTE | 2024-04-26 11:38 | PC.SOCIAL ---
IMM Updated Updated pt on IMM. No questions voiced. Provided pt a copy. Initialed, dated, & timed a copy & placed in chart.
[2024-04-26] MEDS: enoxaparin 80 mg/0.8 mL Syringe SUBCUT (13:00)
--- NOTE | 2024-04-26 14:43 | P.PN_ITS ---
Subjective 2 Subjective: No chest pain today. Vitals/I&O/Wt Last Vital Signs Temp 98.3 F 04/26/24 12:00 Pulse 73 04/26/24 12:00 Resp 28 H 04/26/24 12:00 BP 129/72 04/26/24 12:00 Pulse Ox 98 04/26/24 12:00 O2 Del Method Room Air 04/26/24 12:00 04/25/24 04/26/24 04/26/24 22:59 06:59 14:59 Intake Total 480 / 1500 Output Total 250 / 250 Balance 480 / 1500 -250 / 1250 Weight last 48 hrs Weight 80.104 kg Weight 81.012 kg Physical Exam 2 Narrative: General: No acute distress, AO x3 HEENT: PERRLA, pupils bilaterally equal and reactive, pallors not present Chest: Normal vesicular breath sounds, no added sounds, equal good air entry bilaterally CVS: S1-S2 regular, no murmurs, no tachycardia, no gallops, no rubs Abdomen: Soft, nontender, no organomegaly, bowel sounds present Neuro: No focal deficits, no facial deformity, AO x3, power 5/5 in all limbs Data 04/26/24 03:28 04/26/24 03:28 A&P Assessment and plan (1) Acute non-ST elevation myocardial infarction (NSTEMI): (2) Benign essential HTN: (3) History of quadruple bypass: (4) History of heart attack: (5) Dyslipidemia: (6) History of coronary artery bypass graft: Plan NSTEMI - 69-year-old male with extensive cardiac history presenting with intermittent left arm numbness and tingling concerning for unstable angina in the setting of elevated troponin. No evidence of acute ST-elevation myocardial infarction on EKG.Delta 11 noted on admission. EKG did not show any evidence of ST elevation NM. Patient was started on full dose Lovenox. Aspirin and loaded with Plavix in emergency room. Cardiology has been consulted. Echocardiogram showed left ventricular ejection fraction is severely depressed less than 35% -Patient was taken for cardiac cath yesterday Status post left heart cath yesterday noted to have occluded saphenous venous graft to RCA and occluded saphenous venous skip graft to diagonal and obtuse marginal, QUINTERO to LAD was patent. -Aspirin 81 mg daily, Plavix 75 mg daily, metoprolol XL 25 mg daily, Lipitor 40 mg at bedtime Plan: 1. Plan to return to cardiac cath on friday for impalla guided intervention to left main circumflex and RCA 2. Continue current management as above Mild JEANCARLOS - improving - Creatinine today 1.2 Plan: 1. S/p IVF yesterday per cards 2. BMP in a m 3. Monitor urine output Acute on chronic HFrEF - History of congestive heart failure with last known ejection fraction of 46% in 2023. No overt signs or symptoms of acute decompensation on presentation.Now echo is noted to have significant decrease to 26%, Ischemic work up above. Plan: 1. Continue ischemic work up as above 2. Optimize GDMT meds 3. Cardiology managing Gastroesophageal Reflux Disease - Reports symptoms of heartburn without chest pain, currently managed with proton pump inhibitor therapy. Plan: 1. Continue proton pump inhibitor. Chronic Left Shoulder Pain - History of left shoulder pain following falls 3-4 and 4-5 years ago, with persistent pain since first cardiac surgery. No evidence of acute fracture or dislocation. Plan: 1. Stable, left shoulder xray- negative April 26, 2024 Patient has opted to transfer to [facility] under care of Dr. Siddiqui. Cardiology service is coordinating for transfer to [facility]. No acute complaints at this present time. We are currently awaiting bed at the transferring facility. PDMP PDMP Reviewed: Not Reviewed Attestations 2 Medical Necessity Statement*: awaiting transfer to [facility] Coding Level of Care Code Acute Code for Chg Fwd Diagnoses Acute non-ST elevation myocardial infarction (NSTEMI) I21.4 Benign essential HTN I10 History of quadruple bypass Z95.1 History of heart attack I25.2 Dyslipidemia E78.5 History of coronary artery bypass graft Z95.1
[2024-04-26] MEDS: atorvastatin 40 mg Tablet PO (20:24)
[2024-04-27] MEDS: enoxaparin 80 mg/0.8 mL Syringe SUBCUT (00:03)
[2024-04-27 04:00] VITALS: BP 151/82; PULSE 87; RESP 20; TEMP 36.7; O2SAT 95
[2024-04-27 05:57] LABS: Basophils # 0.1 10^3/uL (0.0-0.1); Basophils % 0.8 %; Eosinophils # 0.4 10^3/uL (0.0-0.8); Hematocrit 35.3 % (37-53); Lymphocytes # 1.7 10^3/uL (0.8-4.8); Lymphocytes % 19.5 %; Mean Corpuscular HGB Conc 33.1 g/dL (30-55); Mean Corpuscular Hemoglobin 30.1 pg (27-33); Mean Corpuscular Volume 90.7 fl (82-101); Mean Platelet Volume 11.1 fL (7.4-10.4); Monocytes # 0.8 10^3/uL (0.2-0.9); Monocytes % 9.6 %; Neutrophils # 5.68 10^3/uL (1.8-7.7); Neutrophils % 65.8 %; Nucleated Red Blood Cells % 0 %; Platelet Count 218 10^3/cmm (157-399); Red Blood Count 3.89 10^6/uL (3.85-5.65); Red Cell Distribution Width 13.6 % (12.1-15.1); White Blood Count 8.65 10^3/uL (3.29-11.43)
[2024-04-27 06:19] LABS: Alanine Aminotransferase 40 U/L (0-41); Albumin Level 3.2 g/dL (3.5-5.2); Alkaline Phosphatase 97 U/L (40-130); Anion Gap 10.7 (5-19); Aspartate Amino Transferase 43 U/L (0-40); Blood Urea Nitrogen 16 mg/dL (8-23); Calcium 8.5 mg/dL (8.5-10.5); Carbon Dioxide 24 mmol/L (22-29); Chloride 108 mmol/L (98-107); Globulin 3.1 g/dL (1.3-4.6); Glomerular Filtration Rate 74.5 mL/min (90-130); Glucose 83 mg/dL (65-115); Osmolality Calculated 288 mOsm/kg (285-295); Potassium 3.7 mmol/L (3.5-5.1); Sodium 139 mmol/L (136-145); Total Bilirubin 0.4 mg/dL (0.15-1.2); Total Protein 6.3 g/dL (6.6-8.7)
--- NOTE | 2024-04-27 08:08 | PC.NURSE ---
[facility]report given to [facility] staff.
--- NOTE | 2024-04-27 10:00 | P.TS_ITS ---
Transfer Summary Providers Date of Admission: 04/23/24 09:33 Date of Discharge/Transfer: 04/27/24 Attending Provider at Admission: Joya Walker Attending Provider at Transfer: Eloisa Montano MD Consults: Cardiology Primary Care Provider: Edie Henley APN Transfer Plans: Anticipated date of transfer: 05/20/24 . Receiving Facility: [facility] . Receiving Provider: Dr. Siddiqui . Diagnoses at Discharge Discharge Diagnosis (1) Acute non-ST elevation myocardial infarction (NSTEMI): Status: Acute (2) Benign essential HTN: Status: Acute (3) History of quadruple bypass: Status: Acute Permanent problem details: 05/20/2022 (4) History of heart attack: Status: Acute Permanent problem details: 2022 (5) Dyslipidemia: Status: Acute (6) History of coronary artery bypass graft: Status: Acute Reason for Visit Reason for Visit cp, left shoulder pain Hospital Course Hospital Course 69-year-old male with extensive cardiac history presenting with intermittent left arm numbness and tingling concerning for unstable angina in the setting of elevated troponin. Patient was started on full dose Lovenox. Aspirin and loaded with Plavix in emergency room. Cardiology has been consulted. Echocardiogram showed left ventricular ejection fraction is severely depressed less than 35%. Patient was taken for cardiac cath, noted to have occluded saphenous venous graft to RCA and occluded saphenous venous graft to diagonal and obtuse marginal, QUINTERO to LAD was patent. He was given the option by cardiology service for impella guided intervention to left main circumflex and RCA here vs transfer to higher center with CT surgery back up, which we do not have available at [facility]. Patient opted to transfer to [facility] for the same. Physical Exam Narrative: Patient left on the morning of 04/27 via EMS prior to my rounds this morning. 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 echo complete* [id number] Routine Ultrasound 04/22/24 18:00 Completed Laboratory Last Values WBC 8.65 10^3/uL (3.29-11.43) 04/27/24 05:07 RBC 3.89 10^6/uL (3.85-5.65) 04/27/24 05:07 Hgb 11.70 g/dL (11.27-16.99) 04/27/24 05:07 Hct 35.3 % (37-53) L 04/27/24 05:07 MCV 90.7 fl (82-101) 04/27/24 05:07 MCH 30.1 pg (27-33) 04/27/24 05:07 MCHC 33.1 g/dL (30-55) 04/27/24 05:07 RDW 13.6 % (12.1-15.1) 04/27/24 05:07 Plt Count 218 10^3/cmm (157-399) 04/27/24 05:07 MPV 11.1 fL (7.4-10.4) H 04/27/24 05:07 Neut % (Auto) 65.8 % 04/27/24 05:07 Lymph % (Auto) 19.5 % 04/27/24 05:07 [place] % (Auto) 9.6 % 04/27/24 05:07 Eos % (Auto) 4.0 % 04/27/24 05:07 Baso % (Auto) 0.8 % 04/27/24 05:07 Neut # (Auto) 5.68 10^3/uL (1.8-7.7) 04/27/24 05:07 Lymph # (Auto) 1.7 10^3/uL (0.8-4.8) 04/27/24 05:07 [place] # (Auto) 0.8 10^3/uL (0.2-0.9) 04/27/24 05:07 Eos # (Auto) 0.4 10^3/uL (0.0-0.8) 04/27/24 05:07 Baso # (Auto) 0.1 10^3/uL (0.0-0.1) 04/27/24 05:07 Nucleated RBC % (auto) 0 % 04/27/24 05:07 Nucleated RBCs # 0.0 /100WBC 04/27/24 05:07 PT 14.10 SECONDS (12.1-14.9) 04/23/24 03:40 INR 1.02 (0.8-1.2) 04/23/24 03:40 APTT 37.0 SECONDS (23.9-36.7) H 04/23/24 03:40 Sodium 139 mmol/L (136-145) 04/27/24 05:07 Potassium 3.7 mmol/L (3.5-5.1) 04/27/24 05:07 Chloride 108 mmol/L (98-107) H 04/27/24 05:07 Carbon Dioxide 24 mmol/L (22-29) 04/27/24 05:07 Anion Gap 10.7 (5-19) 04/27/24 05:07 BUN 16 mg/dL (8-23) 04/27/24 05:07 Creatinine 1.0 mg/dL (0.7-1.2) 04/27/24 05:07 GFR Calculation 74.5 mL/min (90-130) L 04/27/24 05:07 Glucose 83 mg/dL (65-115) 04/27/24 05:07 Calculated Osmolality 288 mOsm/kg (285-295) 04/27/24 05:07 Calcium 8.5 mg/dL (8.5-10.5) 04/27/24 05:07 Total Bilirubin 0.4 mg/dL (0.15-1.2) 04/27/24 05:07 AST 43 U/L (0-40) H 04/27/24 05:07 ALT 40 U/L (0-41) 04/27/24 05:07 Alkaline Phosphatase 97 U/L (40-130) 04/27/24 05:07 Troponin T Baseline 362 ng/L (0-15) H* 04/22/24 11:28 Troponin T 120 Minute 373.4 ng/L (0-15) H 04/22/24 14:08 Delta Troponin T 11.4 ABS# (0-10) H* 04/22/24 14:08 Troponin T Hi Sens 6Hr 360.8 ng/L (0-15) H 04/22/24 18:17 Troponin T Hi Sens 6Hr Delta -1.2 ng/L (0-12) L 04/22/24 18:17 Total Protein 6.3 g/dL (6.6-8.7) L 04/27/24 05:07 Albumin 3.2 g/dL (3.5-5.2) L 04/27/24 05:07 Globulin 3.1 g/dL (1.3-4.6) 04/27/24 05:07 Triglycerides 72 mg/dL (0-150) 04/23/24 03:40 Cholesterol 99 mg/dL (0-200) 04/23/24 03:40 LDL Cholesterol, Calc 45 mg/dL (50-129) L 04/23/24 03:40 HDL Cholesterol 40 mg/dL (60-100) L 04/23/24 03:40 LDL/HDL Ratio 1.13 RATIO (0.00-3.22) 04/23/24 03:40 Cholesterol/HDL Ratio 2.48 mg/dL (1.0-5.00) 04/23/24 03:40 Radiology Impressions Chest X-Ray 04/22/24 10:58 Impression: Hyperinflation and atherosclerosis. Shoulder X-Ray 04/22/24 14:10 Impression: Negative left shoulder. Recent Clincial Data Last Vital Signs Temp 98.1 F 04/27/24 04:00 Pulse 87 04/27/24 04:00 Resp 20 H 04/27/24 04:00 BP 151/82 04/27/24 04:00 Pulse Ox 95 04/27/24 04:00 O2 Del Method Room Air 04/27/24 04:00 Vitals Last Vital Signs Temp 98.1 F 04/27/24 04:00 Pulse 87 04/27/24 04:00 Resp 20 H 04/27/24 04:00 BP 151/82 04/27/24 04:00 Pulse Ox 95 04/27/24 04:00 O2 Del Method Room Air 04/27/24 04:00 TS Medications Medications Discontinued Medications Acetaminophen (Acetaminophen 325 Mg Tablet) 650 mg PO Q6H PRN PRN Reason: Mild/Mod Pain Or Temp >/= 101 Al Hydrox/Mg Hydrox/Simethicone (Rzlg-Oog-Wwfgfkrtl-Anum 30 Ml Udc) 30 ml PO Q15M PRN PRN Reason: INDIGESTION Alprazolam (Alprazolam 0.5 Mg Tablet) 0.25 mg PO TID PRN PRN Reason: ANXIETY Aspirin (Aspirin 81 Mg Chew Tablet) 324 mg PO NOW ONE Stop: 04/22/24 12:29 Last Admin: 04/22/24 12:35 Dose: 324 mg Aspirin (Aspirin 81 Mg Ec Tablet) 81 mg PO DAILY [facility] Last Admin: 04/26/24 07:50 Dose: 81 mg Atorvastatin Calcium (Atorvastatin 40 Mg Tablet) 40 mg PO DAILY [facility] Atorvastatin Calcium (Atorvastatin 40 Mg Tablet) 40 mg PO BEDTIME [facility] Last Admin: 04/26/24 20:24 Dose: 40 mg Atropine Sulfate (Atropine 1 Mg/Ml Sdv 1 Ml) 0.5 mg IVP PRN PRN PRN Reason: Symptomatic bradycardia Clopidogrel Bisulfate (Clopidogrel 300 Mg Tablet) 600 mg PO ONCE ONE Stop: 04/22/24 12:29 Last Admin: 04/22/24 12:35 Dose: 600 mg Clopidogrel Bisulfate (Clopidogrel 75 Mg Tablet) 75 mg PO DAILY [facility] Last Admin: 04/26/24 07:50 Dose: 75 mg Diphenhydramine HCl (Diphenhydramine 50 Mg Capsule) 50 mg PO ONCE ONE Stop: 04/23/24 11:01 Last Admin: 04/23/24 14:12 Dose: 50 mg Diphenhydramine HCl (Diphenhydramine 50 Mg Capsule) 50 mg PO ONCE ONE Stop: 04/26/24 07:30 Last Admin: 04/26/24 07:50 Dose: 50 mg Enoxaparin Sodium (Enoxaparin 100 Mg/Ml Syringe) 90 mg SUBCUT ONCE ONE Stop: 04/22/24 12:29 Last Admin: 04/22/24 12:35 Dose: 90 mg Enoxaparin Sodium (Enoxaparin 80 Mg/0.8 Ml Syringe) 80 mg SUBCUT Q12H [facility] Last Admin: 04/27/24 00:03 Dose: 80 mg Fentanyl (Fentanyl 50 Mcg/Ml Inj 2ml) Confirm Administered Dose 100 mcg .ROUTE .STK-MED ONE Stop: 04/23/24 15:45 Fentanyl (Fentanyl 50 Mcg/Ml Inj 2ml) 50 mcg IVP PRN PRN PRN Reason: PAIN Fentanyl (Fentanyl 50 Mcg/Ml Inj 2ml) Confirm Administered Dose 100 mcg .ROUTE .STK-MED ONE Stop: 04/26/24 08:26 Furosemide (Furosemide 10 Mg/Ml Sdv 10ml) Confirm Administered Dose 100 mg .ROUTE .STK-MED ONE Stop: 04/23/24 16:31 Heparin Sodium (Porcine) (Heparin 5,000 Unit/Ml Inj 1 Ml) Confirm Administered Dose 10,000 unit .ROUTE .STK-MED ONE Stop: 04/23/24 15:45 Heparin Sodium (Porcine) (Heparin 5,000 Unit/Ml Inj 1 Ml) Confirm Administered Dose 5,000 unit .ROUTE .STK-MED ONE Stop: 04/26/24 08:23 Heparin Sodium (Porcine) (Heparin 5,000 Unit/Ml Inj 1 Ml) Confirm Administered Dose 5,000 unit .ROUTE .STK-MED ONE Stop: 04/26/24 08:27 Sodium Chloride (Sodium Chloride 0.9%) 1,000 mls @ 50 mls/hr IV .Q20H ONE Stop: 04/24/24 06:59 Last Infusion: 04/24/24 04:42 Dose: Infused Lidocaine HCl (Xylocaine) Confirm Administered Dose 20 mls @ as directed .ROUTE .ST-MED ONE Stop: 04/23/24 15:45 Lidocaine HCl (Xylocaine) Confirm Administered Dose 20 mls @ as directed .ROUTE .[facility]-MED ONE Stop: 04/23/24 16:40 Nitroglycerin/Dextrose (Nitroglycerin Drip) 50 mg in 250 mls @ 0 mls/hr IV .Q0M [facility]; Protocol Last Titration: 04/23/24 18:29 Dose: 0 mcg/min, 0 mls/hr Sodium Chloride (Sodium Chloride 0.9%) 1,000 mls @ 50 mls/hr IV .Q20H ONE Stop: 04/27/24 03:28 Last Admin: 04/26/24 07:51 Dose: 50 mls/hr Lidocaine HCl (Xylocaine) Confirm Administered Dose 20 mls @ as directed .ROUTE .ST-MED ONE Stop: 04/26/24 08:27 Magnesium Hydroxide (Magnesium Hydroxide 30 Ml Udc) 30 ml PO DAILY PRN PRN Reason: CONSTIPATION Metoprolol Succinate (Metoprolol Succinate Er (24 Hr) 25 Mg Tablet) 25 mg PO DAILY [facility] Last Admin: 04/26/24 07:50 Dose: 25 mg Midazolam HCl (Midazolam 1 Mg/Ml Inj 2 Ml) Confirm Administered Dose 2 mg .ROUTE .STK-MED ONE Stop: 04/23/24 15:45 Midazolam HCl (Midazolam 1 Mg/Ml Inj 2 Ml) Confirm Administered Dose 2 mg .ROUTE .ST-MED ONE Stop: 04/26/24 08:26 Naloxone HCl (Naloxone 0.4 Mg/Ml Sdv) 0.1 mg IVP Q2M PRN PRN Reason: RESPIRATORY RATE < 8/MIN Nitroglycerin (Nitroglycerin 0.4 Mg Sublingual Tablet) 0.4 mg SUBLINGUAL Q5M PRN PRN Reason: CHEST PAIN Nitroglycerin (Nitroglycerin 5 Mg/Ml Sdv 10 Ml) Confirm Administered Dose 50 mg .ROUTE .STK-MED ONE Stop: 04/26/24 08:26 Ondansetron HCl (Ondansetron 2 Mg/Ml Sdv 2 Ml) 4 mg IVP Q8H PRN PRN Reason: vomiting, or N/V if npo Pantoprazole Sodium (Pantoprazole Dr 40 Mg Tablet) 40 mg PO DAILY [facility] Last Admin: 04/26/24 07:50 Dose: 40 mg Temazepam (Temazepam 15 Mg Capsule) 15 mg PO BEDTIME PRN PRN Reason: INSOMNIA Allergies No Known Allergies Allergy (Verified 05/06/24 15:15) Home Medications aspirin 81 mg tablet,delayed release 81 mg PO DAILY 11/26/22 [History Confirmed 05/06/24] pediatric multivitamin no.17 (Children's Chew Multivitamin tablet) 1 tab PO DAILY 11/26/22 [History Confirmed 05/06/24] atorvastatin 40 mg tablet (Lipitor) 40 mg PO DAILY #90 tabs 09/11/23 [Rx Confirmed 05/06/24] fexofenadine 60 mg tablet (Allergy Relief (fexofenadine)) 60 mg PO BID #60 tabs 10/21/23 [Rx Confirmed 05/06/24] sacubitril 97 mg-valsartan 103 mg tablet 1 tab PO BID #180 tabs 03/09/24 [Rx Confirmed 05/06/24] metoprolol succinate 25 mg tablet,extended release 24 hr 25 mg PO DAILY 04/22/24 [History Confirmed 05/06/24] empagliflozin 10 mg tablet (Jardiance) 10 mg PO DAILY 05/06/24 [History Confirmed 05/06/24] prasugrel HCl 10 mg tablet 10 mg PO DAILY 05/06/24 [History Confirmed 05/06/24] pantoprazole 40 mg tablet,delayed release See Rx Instructions .Route .COMPLEX #90 tabs 05/11/24 [Rx] Discharge Plan Discharge Patient Disposition: Xfer Short-Term Hosp Condition: Stable Prescriptions: No Action atorvastatin [Lipitor] 40 mg tablet 40 mg PO DAILY Qty: 90 3RF fexofenadine [Allergy Relief (fexofenadine)] 60 mg tablet 60 mg PO BID Qty: 60 3RF prasugrel HCl 10 mg tablet 10 mg PO DAILY Jardiance 10 mg tablet 10 mg PO DAILY aspirin 81 mg tablet,delayed release (DR/EC) 81 mg PO DAILY Children's Chew Multivitamin Tablet,Chewable 1 tab PO DAILY sacubitril-valsartan 97-103 mg tablet 1 tab PO BID Qty: 180 3RF pantoprazole 40 mg tablet,delayed release (DR/EC) See Rx Instructions .ROUTE .COMPLEX Qty: 90 0RF Dose Instruction: Take 1 tablet by mouth once daily Rx Instructions: Take 1 tablet by mouth once daily metoprolol succinate 25 mg tablet extended release 24 hr 25 mg PO DAILY Rx Instructions: Take 1 tablet by mouth once daily Referrals: Edie Henley FNP [Primary Care Provider] - Patient Instructions: Opioid Safety Transfer Attestations Time Spent in Transfer Care: less than 30 min Quality Metrics Clinical Quality Measures [ No reported AMI, CVA or VTE this stay] Coding Level of Care Code Acute Code for [facility] Fwd Diagnoses Acute non-ST elevation myocardial infarction (NSTEMI) I21.4 Benign essential HTN I10 History of quadruple bypass Z95.1 History of heart attack I25.2 Dyslipidemia E78.5 History of coronary artery bypass graft Z95.1
--- NOTE | 2024-04-27 11:00 | P.DS_ITS ---
Discharge Providers Date of Admission: 04/23/24 09:33 Date of Discharge: April 27, 2024 Attending Provider at Admission: Joya Walker Attending Provider at Discharge: Eloisa Montano MD Primary Care Provider: Edie Henley APN Diagnoses at Discharge Discharge Diagnosis (1) Acute non-ST elevation myocardial infarction (NSTEMI): Status: Acute (2) Benign essential HTN: Status: Acute (3) History of quadruple bypass: Status: Acute Permanent problem details: 05/20/2022 (4) History of heart attack: Status: Acute Permanent problem details: 2022 (5) Dyslipidemia: Status: Acute (6) History of coronary artery bypass graft: Status: Acute Reason for Visit Reason for Visit: cp, left shoulder pain Discharge Data Studies Completed and Pending Completed Studies During Hospitalization Category Date Time Status SCREENING NURSE request for service Routine Exams 04/23/24 05:36 Completed XR chest 1V portable [id number] Stat Exams 04/22/24 10:58 Completed XR shoulder LT min 2V* [id number] Routine Exams 04/22/24 14:10 Completed CV. echo complete* [id number] Routine Ultrasound 04/22/24 18:00 Completed Radiology Impressions Chest X-Ray 04/22/24 10:58 Impression: Hyperinflation and atherosclerosis. Shoulder X-Ray 04/22/24 14:10 Impression: Negative left shoulder. Laboratory Results WBC 8.65 10^3/uL (3.29-11.43) 04/27/24 05:07 RBC 3.89 10^6/uL (3.85-5.65) 04/27/24 05:07 Hgb 11.70 g/dL (11.27-16.99) 04/27/24 05:07 Hct 35.3 % (37-53) L 04/27/24 05:07 MCV 90.7 fl (82-101) 04/27/24 05:07 MCH 30.1 pg (27-33) 04/27/24 05:07 MCHC 33.1 g/dL (30-55) 04/27/24 05:07 RDW 13.6 % (12.1-15.1) 04/27/24 05:07 Plt Count 218 10^3/cmm (157-399) 04/27/24 05:07 MPV 11.1 fL (7.4-10.4) H 04/27/24 05:07 Neut % (Auto) 65.8 % 04/27/24 05:07 Lymph % (Auto) 19.5 % 04/27/24 05:07 [place] % (Auto) 9.6 % 04/27/24 05:07 Eos % (Auto) 4.0 % 04/27/24 05:07 Baso % (Auto) 0.8 % 04/27/24 05:07 Neut # (Auto) 5.68 10^3/uL (1.8-7.7) 04/27/24 05:07 Lymph # (Auto) 1.7 10^3/uL (0.8-4.8) 04/27/24 05:07 [place] # (Auto) 0.8 10^3/uL (0.2-0.9) 04/27/24 05:07 Eos # (Auto) 0.4 10^3/uL (0.0-0.8) 04/27/24 05:07 Baso # (Auto) 0.1 10^3/uL (0.0-0.1) 04/27/24 05:07 Nucleated RBC % (auto) 0 % 04/27/24 05:07 Nucleated RBCs # 0.0 /100WBC 04/27/24 05:07 PT 14.10 SECONDS (12.1-14.9) 04/23/24 03:40 INR 1.02 (0.8-1.2) 04/23/24 03:40 APTT 37.0 SECONDS (23.9-36.7) H 04/23/24 03:40 Sodium 139 mmol/L (136-145) 04/27/24 05:07 Potassium 3.7 mmol/L (3.5-5.1) 04/27/24 05:07 Chloride 108 mmol/L (98-107) H 04/27/24 05:07 Carbon Dioxide 24 mmol/L (22-29) 04/27/24 05:07 Anion Gap 10.7 (5-19) 04/27/24 05:07 BUN 16 mg/dL (8-23) 04/27/24 05:07 Creatinine 1.0 mg/dL (0.7-1.2) 04/27/24 05:07 GFR Calculation 74.5 mL/min (90-130) L 04/27/24 05:07 Glucose 83 mg/dL (65-115) 04/27/24 05:07 Calculated Osmolality 288 mOsm/kg (285-295) 04/27/24 05:07 Calcium 8.5 mg/dL (8.5-10.5) 04/27/24 05:07 Total Bilirubin 0.4 mg/dL (0.15-1.2) 04/27/24 05:07 AST 43 U/L (0-40) H 04/27/24 05:07 ALT 40 U/L (0-41) 04/27/24 05:07 Alkaline Phosphatase 97 U/L (40-130) 04/27/24 05:07 Troponin T Baseline 362 ng/L (0-15) H* 04/22/24 11:28 Troponin T 120 Minute 373.4 ng/L (0-15) H 04/22/24 14:08 Delta Troponin T 11.4 ABS# (0-10) H* 04/22/24 14:08 Troponin T Hi Sens 6Hr 360.8 ng/L (0-15) H 04/22/24 18:17 Troponin T Hi Sens 6Hr Delta -1.2 ng/L (0-12) L 04/22/24 18:17 Total Protein 6.3 g/dL (6.6-8.7) L 04/27/24 05:07 Albumin 3.2 g/dL (3.5-5.2) L 04/27/24 05:07 Globulin 3.1 g/dL (1.3-4.6) 04/27/24 05:07 Triglycerides 72 mg/dL (0-150) 04/23/24 03:40 Cholesterol 99 mg/dL (0-200) 04/23/24 03:40 LDL Cholesterol, Calc 45 mg/dL (50-129) L 04/23/24 03:40 HDL Cholesterol 40 mg/dL (60-100) L 04/23/24 03:40 LDL/HDL Ratio 1.13 RATIO (0.00-3.22) 04/23/24 03:40 Cholesterol/HDL Ratio 2.48 mg/dL (1.0-5.00) 04/23/24 03:40 Vitals Last Vital Signs Temp 98.1 F 04/27/24 04:00 Pulse 87 04/27/24 04:00 Resp 20 H 04/27/24 04:00 BP 151/82 04/27/24 04:00 Pulse Ox 95 04/27/24 04:00 O2 Del Method Room Air 04/27/24 04:00 Discharge Plan Discharge Patient Disposition: Xfer Short-Term Hosp Condition: Stable Prescriptions: No Action atorvastatin [Lipitor] 40 mg tablet 40 mg PO DAILY Qty: 90 3RF fexofenadine [Allergy Relief (fexofenadine)] 60 mg tablet 60 mg PO BID Qty: 60 3RF prasugrel HCl 10 mg tablet 10 mg PO DAILY Jardiance 10 mg tablet 10 mg PO DAILY aspirin 81 mg tablet,delayed release (DR/EC) 81 mg PO DAILY Children's Chew Multivitamin Tablet,Chewable 1 tab PO DAILY sacubitril-valsartan 97-103 mg tablet 1 tab PO BID Qty: 180 3RF pantoprazole 40 mg tablet,delayed release (DR/EC) See Rx Instructions .ROUTE .COMPLEX Qty: 90 0RF Dose Instruction: Take 1 tablet by mouth once daily Rx Instructions: Take 1 tablet by mouth once daily metoprolol succinate 25 mg tablet extended release 24 hr 25 mg PO DAILY Rx Instructions: Take 1 tablet by mouth once daily Referrals: Edie Henley FNP [Primary Care Provider] - Patient Instructions: Opioid Safety Coding Level of Care Code Acute Code for [facility] Fwd Diagnoses Acute non-ST elevation myocardial infarction (NSTEMI) I21.4 Benign essential HTN I10 History of quadruple bypass Z95.1 History of heart attack I25.2 Dyslipidemia E78.5 History of coronary artery bypass graft Z95.1
== END 2024-04-27 07:30 | disposition short-term general hospital (02) | DRG 280 ==
LOC: ER 12:30 → ER IP 13:51 → CSU 15:10
PROVIDERS: Internal Medicine Cardiovascular Disease; Nurse Practitioner Family; Admitting Provider Hospitalist; Emergency Provider Emergency Medicine; PCP Nurse Practitioner; Visit Provider Student in an Organized Health Care Education/Training Program
PROC: B2111ZZ Fluoroscopy of Multiple Coronary Arteries using Low Osmolar Contrast (ICD-10-PCS; principal; 2024-04-23 13:50)
DX: I21.4 Non-ST elevation (NSTEMI) myocardial infarction (principal); I50.23 Acute on chronic systolic (congestive) heart failure; I25.810 Atherosclerosis of coronary artery bypass graft(s) without angina pectoris; N17.9 Acute kidney failure, unspecified; I25.10 Atherosclerotic heart disease of native coronary artery without angina pectoris; Z95.1 Presence of aortocoronary bypass graft; I11.0 Hypertensive heart disease with heart failure; I25.2 Old myocardial infarction; E78.5 Hyperlipidemia, unspecified; Z79.82 Long term (current) use of aspirin; Z79.02 Long term (current) use of antithrombotics/antiplatelets; Z87.891 Personal history of nicotine dependence; K21.9 Gastro-esophageal reflux disease without esophagitis; G89.29 Other chronic pain; M25.512 Pain in left shoulder; I25.5 Ischemic cardiomyopathy; M54.2 Cervicalgia
CPT/HCPCS: 36415; 71045; 73030; 80048; 80053; 80061; 84484; 85025; 85610; 85730; 93005; 93306; 93459; 96372; 96374; 96376; 99152; 99153; 99285; C1760; C1769; C1887; C1894; G0269; G0378; J1644; J1650; J1940; J2250; J3010; J3490; J7030; J9999; Q0163; Q9967

== ENCOUNTER → 2024-05-06 15:32 | Outpatient (BNVA) | payer MEDICARE, SELFPAY | PROVIDERS: PCP Nurse Practitioner; Visit Provider Nurse Practitioner | DX: I25.5 Ischemic cardiomyopathy (principal); I25.10 Atherosclerotic heart disease of native coronary artery without angina pectoris; Z79.899 Other long term (current) drug therapy | CPT/HCPCS: 80048; 83036; 85025 ==

== ENCOUNTER 2024-09-10 11:22 | Outpatient (CLI) | payer MEDICARE, SELFPAY ==
--- NOTE | 2024-09-10 12:00 | USCV_ITS ---
Lakeisha Shrestha Age: 69 Gender: M : 1955 Exam Date: 09/10/2024 12:02 Ordering Phys: Edie Henley CLINICAL RESEARCHER Technologist: Umer Mir Exam Location: [facility] Indication: old myocardial infarction BP: 115 / 66 HR: 63 Rhythm: Sinus Technical Quality: Adequate MEASUREMENTS (Male / Female) Normal Values 2D ECHO LVOT Diameter 2.0 cm LV Ejection Fraction MOD 4C 42.5 % LV Ejection Fraction MOD 2C 46.1 % LV Ejection Fraction 2C AL 41.8 % LA Diameter 3.3 cm RA Systolic Volume 4C AL 19.7 ml RA Systolic Volume 4C MOD 19.2 ml LA Sys Volume AL 34.7 cm cubed LA Sys Volume Index AL 17.1 cm cubed/m squared Aorta at Sinotubular Diameter 2.4 cm IVC Diameter 1.4 cm M-MODE LA Ao Ratio MM 1.2 AV Cusp Separation MM 2.0 cm DOPPLER AV Peak Velocity 105.0 cm/s LVOT Peak Velocity 66.0 cm/s AV Area Cont Eq vti 1.9 cm squared AV Area Cont Eq pk 2.0 cm squared MV Peak Velocity 75.0 cm/s MV Area PHT 2.0 cm squared Mitral E to A Ratio 0.7 TR Peak Velocity 275.0 cm/s TR Peak Gradient 30.3 mmHg TR Mean Velocity 225.0 cm/s TR Mean Gradient 21.5 mmHg TR Velocity Time Integral 78.1 cm PV Peak Velocity 97.3 cm/s RV Ejection Time 0.2 s FINDINGS Left Ventricle Moderately increased left ventricular cavity size. Moderately decreased left ventricular systolic function. Left ventricular ejection fraction is estimated at 40 %. Global left ventricular hypokinesis. Grade I/IV diastolic dysfunction (abnormal relaxation filling pattern), normal to mildly elevated filling pressures. Right Ventricle The right ventricle is normal in size and function. Right Atrium The right atrium is normal in size. Left Atrium The left atrium is normal in size. Mitral Valve Mildly thickened mitral valve. No mitral valve stenosis. Mild to moderate mitral valve regurgitation. Aortic Valve Moderate aortic valve calcification. No aortic valve stenosis. Trace aortic valve regurgitation. Tricuspid Valve Structurally normal tricuspid valve without significant stenosis or regurgitation. Pulmonary artery systolic pressure is normal. Pulmonic Valve Structurally normal pulmonic valve without significant stenosis. There is no pulmonic regurgitation. Pericardium Normal pericardium without effusion. Aorta Normal ascending aorta dimension. IVC The inferior vena cava appears normal. CONCLUSIONS Moderately increased left ventricular cavity size. Moderately decreased left ventricular systolic function. Left ventricular ejection fraction is estimated at 40 %. Global left ventricular hypokinesis. Grade I/IV diastolic dysfunction (abnormal relaxation filling pattern), normal to mildly elevated filling pressures. Mildly thickened mitral valve. No mitral valve stenosis. Mild to moderate mitral valve regurgitation. Moderate aortic valve calcification. No aortic valve stenosis. Trace aortic valve regurgitation. There is no pericardial effusion. Right atrial pressure is around 5 mm of mercury. Frances Art MD (Electronically Signed) Final Date: 11 September 2024 18:21 S
== END 2024-09-10 11:23 | disposition home or self-care (01) ==
LOC: RAD 11:27
PROVIDERS: PCP Nurse Practitioner; Visit Provider Nurse Practitioner
DX: I25.2 Old myocardial infarction (principal); Z95.1 Presence of aortocoronary bypass graft; I25.10 Atherosclerotic heart disease of native coronary artery without angina pectoris; I50.23 Acute on chronic systolic (congestive) heart failure; I34.0 Nonrheumatic mitral (valve) insufficiency; I35.1 Nonrheumatic aortic (valve) insufficiency; I35.8 Other nonrheumatic aortic valve disorders
CPT/HCPCS: 93306

== ENCOUNTER → 2024-10-25 11:50 | Outpatient (BNVA) | payer MEDICARE, SELFPAY | PROVIDERS: PCP Nurse Practitioner; Visit Provider Internal Medicine Cardiovascular Disease | DX: I25.10 Atherosclerotic heart disease of native coronary artery without angina pectoris (principal); I10 Essential (primary) hypertension; E78.5 Hyperlipidemia, unspecified; Z87.891 Personal history of nicotine dependence | CPT/HCPCS: 99214 ==

== ENCOUNTER 2024-11-03 23:47 | Emergency (ER) | payer MEDICARE, SELFPAY ==
--- OUTSIDE RECORDS SUMMARY | 2024-11-03 23:56 | XMS_ITS | Clinical Summary ---
Author Organization [facility] Address [address] [place] [address] Phone Care Team Providers Care Smoking Tobacco Packing Machine Hand Name Role Phone Unavailable Primary Care Provider Unavailabl e Allergies No known active allergies Medications pantoprazole (PROTONIX) 20 mg Tablet, Delayed Release (E.C.) Take 20 mg by mouth daily. Active metoprolol succinate (TOPROL XL) 25 mg Extended Release 24 hour tablet Take by mouth daily. Active atorvastatin (LIPITOR) 40 mg tablet Take 40 mg by mouth daily. Active sacubitriL-cooper sartan (Entresto) 97-103 mg Tablet Take by mouth 2 times daily. Active prasugreL HCl (EFFIENT) 10 mg Tablet Take 1 Tablet (10 mg) by mouth daily. 90 Tablet 3 05/01/19 25 Active aspirin (JADE CHEWABLE) 81 mg Tablet, Chewable Take 1 Tablet (81 mg) by mouth daily. 30 Tablet 05/01/19 25 Active nitroglycerin (NITROSTAT) 0.4 mg Tablet, Sublingual Place 1 Tablet (0.4 mg) under tongue every 5 minutes as needed for Chest Pain (Not to exceed 3 doses, notify physician if chest pain not relieved, hold if systolic BP less than or equal to 90 mmHg). 30 Tablet 04/30/19 25 Active spironolactone (ALDACTONE) 25 mg tablet Take 0.5 Tablets (12.5 mg) by mouth daily. 90 Tablet 3 05/28/19 25 Active empagliflozin (Jardiance) 10 mg tablet TAKE 1 TABLET BY MOUTH ONCE DAILY IN THE MORNING 90 Tablet 3 10/19/19 25 Active Jardiance 10 mg tablet TAKE 1 TABLET BY MOUTH ONCE DAILY IN THE MORNING 90 Tablet 07/24/19 25 025 Discontinued Active Problems Problem Noted Date Diagnosed Date S/P coronary artery stent placement 04/29/2024 HFrEF (heart failure with reduced ejection fract ion) 04/29/2024 Coronary artery disease invo lving coronary bypass graft with unstable angina pectoris 04/28/2024 Ischemic dilated cardiomyopathy 04/28/2024 NSTEMI (non-ST elevated myocardial infarction) 0 04/27/2024 Encounters Date Type Department Care Team Description 10/15/2024 [facility] [address] [place] [id number] Fabiana Mack NP 09/21/2024 External Device Data STL ABSTRACTION Provider, Abstract 09/15/2024 External Device Data STL ABSTRACTION Provider, Abstract 08/25/2024 External Device Data STL ABSTRACTION Provider, Abstract 08/24/2024 External Device Data STL ABSTRACTION Provider, Abstract from Last 3 Months Social History Tobacco Use Types Packs/Day Years Used Date Smoking Tobacco: Former Cigarettes 2 50.7 S tarted: 1975 Passive Smoke Exposure: Past Smokeless Tobacco: Never Tobacco Cessation:Counseling Given: Not Answered Alcohol Use Standard Drinks/Week Comments Never 0 (1 standard drink = 0.6 oz pur e alcohol) Feeling Safe Answer Date Recorded Are you in a relationship wi th someone who hurts you emotionally and/or physically? No 04/27/2024 Food Insecurity Answer Date Recorded Patient needs follow up regardin 06/11/2024 Transportation Needs Answer Date Record ed Patient needs follow up regardin 06/11/2024 Housing Stability Answer Date Recorded Social/Environmental Concerns No concerns Utility Needs Answer Date Recorded Patient needs follow up regardin 06/11/2024 Sex and Gender Information Value Date Recorded Sex Assigned at Not on file Legal Sex Male 12:28 PM CDT Gender Identity Not on file Sexual Orientation Not on file Last Filed Vital Signs Vital Sign Reading Time Taken Comments Blood Pressure 130/72 05/27/2024 8:18 AM CDT Pulse 71 05/27/2024 8:18 AM CDT Temperature 36.2 C (97.2 F) 04/30/2024 8:34 AM CDT Respiratory Rate 18 04/30/2024 8:34 AM CDT Oxygen Saturation 100% 04/30/2024 8:34 AM CDT Inhaled Oxygen Concentration - - Weight 84.8 kg (187 lb) 05/27/2024 8:18 AM CDT Height 177.8 cm (5' 10 ) 05/27/2024 8:18 AM CDT Body Mass Index 26.83 05/27/2024 8:18 AM CDT Plan of Treatment Upcoming Encounters Date Type Department Care Team (Late st Contact Info) Description 12/08/2024 8:20 AM CDT Office Visit [facility] [address] [place] [address] Carlos Manuel Tracie Loraine, KERRICK KLEANER OPERATOR [address] [place] [address] Health Maintenance Due Date Last Done Comments DTAP/TDAP/TD VACCINES (1 - Tdap) 02/11/1976 COLORECTAL SCREENING 2002 Colorectal Cancer Screening 2002 FIT-DNA Q 3 years 2002 FIT/FOBT Q 1 year 2002 Flex Sig/CT Colonography Q 5 years 2002 PNEUMOCOCCAL VACCINE 50+ YEARS (1 of 1 - PCV) 02/10/19 08 ZOSTER VACCINE (1 of 2) 2007 RSV VACCINE (60+ or ) (1 - Risk 60-74 years 1-dose series) 2017 Abdominal Aortic Aneurysm (AAA) Screening 2022 INFLUENZA VACCINE (#1) 2024 Pre-Diabetes and Diabetes Screening 05/07/202705/06 Medical Devices Implanted Type Area Technician Assistant Device Identifier Shelf Expiration Date Model / Serial / Lot Dev Closure Angioseal 6fr Vip [id number] - [id number] Implanted:Qty: 1 on 04/28/2024 by Barrera Handley MD at [facility] Closure Device N/A: Groin TERUMO- CARDIOVASC SYS [id number] 09/25/2024 [id number] / / [id number] Stent Trevin Firth Tee 3.0x15mm Rx [id number] - [id number] Implanted:Qty: 1 on 04/28/2024 by Barrera Handley MD at [facility] Stent N/A: Coronary [employer] [id number] 01/11/2027 [id number] / / [id number] Stent Trevin Firth Tee 2.14w40ot Rx [id number] - [id number] Implanted:Qty: 1 on 04/28/2024 by Barrera Handley MD at [facility] Stent N/A: Coronary [employer] [id number] 08/12/2026 [id number] / / [id number] Procedures Procedure Name Priority Date/Time Associated Diagnosis Comments HEMOGLOBIN A1C Routine 05/06/2024 from Last 3 Months or Most Recently Relevant to Health Maintenance Results * HEMOGLOBIN A1C (05/06/2024) ABSTRACTED HGB A1C 5.2 % Blood 05/06/2024 Edie LIM CHEMISTRY ORDERABLES Final Res ult from Last 3 Months or Most Recently Relevant to Health Maintenance [place] [facility] [place]: [address] [address] Advance Directives For more information, please contact: [phone] Documents on File Type Date Recorded Patient Clerical Adjudicator Expl anation Advance Directive Living Will 05/03/2024 10:23 AM Advance Directive Living Will Advance Directive POA 05/03/2024 10:22 AM Advance Directive POA Advance Directive Living Will 04/30/2024 8:20 AM Advance Directive Living Will Advance Directive POA 04/30/2024 8:20 AM A dvance Directive POA * Default Full Code - Needs Discussion (Latest Code Status on File) Date Activated Date Inactivated Comments 04/27/2024 3:14 PM 04/30/2024 12:43 PM
[2024-11-03 23:58] VITALS: BP 149/103; PULSE 98; RESP 16; TEMP 37; O2SAT 100; BMI 25.5
[2024-11-04 00:01] VITALS: BP 146/88; RESP 89; O2SAT 97
--- NOTE | 2024-11-04 00:01 | ED_ITS ---
HPI - Epistaxis General: Chief complaint: Epistaxis Stated complaint: nose bleed wont stop Time Seen by Provider: 11/03/24 23:51 Source: patient Mode of arrival: ambulatory Limitations: no limitations History of Present Illness: 69-year-old male states he has had recur rent nosebleeds to the right nare in the past. States he had a nosebleed started few hours ago states its been intermittent has had a hard time stopping it. He is on a baby aspirin a day he denies any pain denies any injuries Related Data Home Medications ?Medication ?Instructions ?Recorded ?Confirmed aspirin 81 mg tablet,delayed 81 mg PO DAILY 11/26/22 0 10/25/24 release pediatric multivitamin no.17 1 tab PO DAILY 11/26/22 0 10/25/24 (Children's Chew Multivitamin tablet) empagliflozin 10 mg tablet 10 mg PO DAILY 05/06/24 (Jardiance) prasugrel HCl 10 mg tablet 10 mg PO DAILY 05/06/24 spironolactone 25 mg tablet 12.5 mg PO DAILY 06/03/24 10/25/24 Previous Rx's ?Medication ?Instructions ?Recorded fexofenadine 60 mg tablet (Allergy 60 mg PO BID #60 ta bs 10/21/23 Relief (fexofenadine)) sacubitril 97 mg-valsartan 103 mg 1 tab PO BID #180 ta bs 03/09/24 tablet metoprolol succinate 25 mg See Rx Instructions .Route 08/23/24 tablet,extended release 24 hr .COMPLEX #90 tabs atorvastatin 40 mg tablet (Lipitor) 40 mg PO DAILY #90 tabs 10/08/24 Allergies Allergy/AdvReac Type Severity Reaction Status Date / Time No Known Allergies Allergy Verified 10/25/24 14:20 Review of Systems ENMT: Reports: epistaxis PFSH ED PFSH: Medical History History of heart attack may- 2022 Surgical History History of cholecystectomy History of hernia repair History of dental surgery History of quadruple bypass 05/20/2022 Family History Grandfather , maternal Cancer paternal- liver Chronic kidney disease (CKD) Diabetes Brother Heart disease Mother Heart disease Denies family history of Clotting disorder Bleeding disorder Thyroid disease Stroke Social History Smoking and tobacco/nicotine status: former use of tobacco/nicotine Quit status (tobacco/nicotine): has quit using Year quit tobacco: 2017 Second hand smoke exposure: No Physical Exam Const: COMMON NORMALS: no acute distress, patient oriented x3 and healthy appearing HENMT: COMMON NORMALS: normocephalic and atraumatic HEAD & SCALP: normocephalic and atraumatic OTHER: Dried blood to right nare no bleeding at this time Eye: COMMON NORMALS: conjunctivae normal CONJUNCTIVA: Yes conjunctivae normal Neck/C-Spine: COMMON NORMALS: full ROM and supple Chest: COMMONS NORMALS: normal inspection of the chest Resp: COMMON NORMALS: normal respiratory effort Cardio: COMMON NORMALS: regular rate RATE: regular rate Extremity: COMMON NORMALS: normal to inspection and full ROM Neuro: COMMON NORMALS: patient oriented x3, moves all extremities and no focal motor deficits Psych: COMMON NORMALS: mental status grossly normal, Normal thought process present and cooperative THOUGHT PROCESS: Normal thought process present Skin: COMMON NORMALS: no rashes or lesions noted and no wounds GENERAL SKIN EXAM: no rashes or lesions noted Course Vital Signs: Vital signs: Vital Signs Temperature 98.6 F 11/03/24 23:58 Pulse Rate 98 11/03/24 23:58 Respiratory Rate 89 H 11/04/24 00:01 Blood Pressure 146/88 11/04/24 00:01 Pulse Oximetry 97 11/04/24 00:01 Oxygen Delivery Me thod Room Air 11/04/24 00:01 MDM - Epistaxis Medical Decision Making Patient presents for the nosebleed did spray Afrin and had a nose clamp on his since stopped he is in no longer have any bleeding he stable for discharge his to follow-up with PCP return if worsening he has no signs of anemia Medical Records I reviewed the patient's medical records. No radiology studies performed this visit Discharge Plan Discharge Patient Disposition: Home Clinical Impression: Epistaxis Condition: Stable Prescriptions: No Action fexofenadine [Allergy Relief (fexofenadine)] 60 mg tablet 60 mg PO BID Qty: 60 3RF prasugrel HCl 10 mg tablet 10 mg PO DAILY Jardiance 10 mg tablet 10 mg PO DAILY spironolactone 25 mg tablet 12.5 mg PO DAILY aspirin 81 mg tablet,delayed release (DR/EC) 81 mg PO DAILY Children's Chew Multivitamin Tablet,Chewable 1 tab PO DAILY sacubitril-valsartan 97-103 mg tablet 1 tab PO BID Qty: 180 3RF metoprolol succinate 25 mg tablet extended release 24 hr See Rx Instructions .ROUTE .COMPLEX Qty: 90 0RF Dose Instruction: Take 1 tablet by mouth once daily Rx Instructions: Take 1 tablet by mouth once daily atorvastatin [Lipitor] 40 mg tablet 40 mg PO DAILY Qty: 90 3RF Discharge Orders: Discharge ED (Routine); Ordered 11/04/24 Ordered By: Henrik Morgan Referrals: Edie Henley FNP [Primary Care Provider, Nurse Practitioner] - 4-7 days Discharge Diet: Advance as tolerated Discharge Activity: Resume usual activity Patient Instructions: Nosebleed (ED) Print Language: Burkinan Coding Level of Care Code ED Switchman for Abilio Barker
[2024-11-04 00:38] VITALS: BP 152/106; PULSE 105; O2SAT 95
== END 2024-11-04 00:57 | disposition home or self-care (01) ==
PROVIDERS: Emergency Provider Emergency Medicine; PCP Nurse Practitioner
DX: R04.0 Epistaxis (principal); Z79.82 Long term (current) use of aspirin; Z87.891 Personal history of nicotine dependence
CPT/HCPCS: 99283; J9999